=== PATIENT | female | born 1945 | race Caucasian/White ===

== ENCOUNTER 2024-09-19 13:45 | Inpatient (IN) | payer MEDICARE, SELFPAY ==
[2024-09-19] VITALS (39 sets, daily range): BP systolic 108–170; BP diastolic 59–125; PULSE 64–85; RESP 2–30; TEMP 36–36.6; O2SAT 83–98
--- NOTE | 2024-09-19 14:00 | DI.RAD_ITS ---
Exam(s) XR PORTABLE CHEST AP EXAM: XR PORTABLE CHEST AP CLINICAL HISTORY: SOB, eval PNA TECHNIQUE: 2D digital imaging was performed. COMPARISON: No exams were available for comparison FINDINGS: Exam is limited due to under penetration. LUNGS: Infiltrate seen in the inferior right upper lobe is well as right lower lobe. Mild blunting a t the right costophrenic angle could be chronic or represent a small effusion. The left lung base is partially obscured. No pneumothorax HEART: Mildly enlarged. AORTA: Normal diameter. BONES: Unremarkable for age. Sternal wires. Prominent costal cartilage Soft tissues: Unremarkable. IMPRESSION: Right upper and lower lobe pneumonia. DATA REPOSITORY: RADIATION DOSE DELIVERED:
--- NOTE | 2024-09-19 14:00 | RT.EKG_ITS ---
APPROVED REPORT Exam: Resting ECG Reason for Exam: SOB Patient Location: E HR:74 bpm ECG Measurements Heart Rate 74 AXIS NE [id number] P [id number] QRSd 111 QRS -82 QT 450 T 72 QTc 499 Conclusion Accelerated junctional rhythm vs sinus rhythm with flattened p waves Prolongued QTc to 499ms No STEMI No priors available for comparison
--- NOTE | 2024-09-19 14:04 | ED.GENADUL_ITS ---
Discharge Plan Discharge Details Chief Complaint: SOB Primary Care Provider: Anna,Local ED Provider: Tangela Fortune Home Meds and New Rx's Prescriptions: No Action levothyroxine 150 mcg tablet 150 mcg PO DAILY Patient Comments: TAKE ONE TABLET BY MOUTH ONCE DAILY. gabapentin 300 mg capsule 300 mg PO QHS Patient Comments: TAKE 1 CAPSULE BY MOUTH EVERY DAY AT HOUR OF SLEEP budesonide 0.5 mg/2 mL suspension for nebulization 0.5 mg inhalation BID Patient Comments: Inhale 1 ampule 2 TIMES A DAY via nebulizer montelukast 10 mg tablet 10 mg PO DAILY Patient Comments: TAKE ONE TABLET BY MOUTH ONCE DAILY. furosemide 20 mg tablet 20 mg PO DAILY Patient Comments: TAKE 1 TABLET BY MOUTH EVERY DAY oxybutynin chloride 5 mg tablet 5 mg PO DAILY Patient Comments: TAKE 1 TABLET BY MOUTH DAILY NEEDED FOR URINE CONTROL escitalopram oxalate 20 mg tablet 20 mg PO DAILY Patient Comments: TAKE 1 TABLET BY MOUTH EVERY DAY Fasenra 30 mg/mL syringe 30 mg SUBCUT ONCE Patient Comments: 1 injection every 56 days per pt Trelegy Ellipta 200-62.5-25 mcg blister with device 1 inh INHALATION DAILY Patient Comments: INHALE 1 PUFF BY MOUTH EVERY DAY bupropion HCl [Wellbutrin XL] 300 mg tablet extended release 24 hr 300 mg PO DAILY HPI General Mode of arrival: EMS . Date/Time Provider Initiated Documentation: 09/19/24 13:50 . Limitations to Documentation: no limitations . Information obtained by: patient, family and old records reviewed . HPI Narrative: HPI: This is an 78-year-old female patient with a past medical history significant for COPD, and admission for pneumonia in June 2024, on 4 L of oxy gen at baseline who is presenting for evaluation of shortness of breath. The patient reports that she was feeling well after discharge from the [facility] [place], and 3 days ago started to have worsening of her shortness of breath. She has a productive cough at baseline but feels like it is more bothersome now. She has not noted any fevers or chills. She states that she has been using her nebulizer, but as she is traveling and visiting family it is more difficult to access because it is not in her usual spot. She reports that she has not been on oral steroids, does take Lasix at baseline but denies a history of heart failure. Patient was transported by EMS, received a nebulizer treatment en route. On arrival the patient was taken off of her oxygen to change into a gown, and was n oted to immediately desaturate to the mid 70s. She did recover slowly with 4 L by simple mask. Had 2-3 word dyspnea during this event. Exam: Gen: Awake and alert, in no apparent distress HEENT: Non-icteric sclera Neck: Supple Lungs: Mild respiratory distress with tachypnea, junky sounding cough and scattered crackles throughout her lung selby CV: Appears well perfused, heart with regular rate and rhythm, strong distal pulses Abdomen: Non-distended, soft MSK: Moves 4 extremities without apparent limitation in ROM. No unilateral calf swelling, no peripheral edema Skin: Visualized skin without rashes, cyanosis. Neuro: Normal Gait, no obvious focal deficits or facial asymmetry. Speaks in full, clear sentences while on oxygen. Psych: Appropriate for situation. MDM: This is a 88-year-old female patient presenting for evaluation of shortness of breath and hypoxia for the last 3 days. My differential includes but is not limited to COPD exacerbation, pneumonia, bronchitis, certainly consider pulmonary edema and pleural effusion. The patient is not tachycardic and the productive cough is less consistent with a diagnosis of pulmonary embolism. No chest pain to suggest ACS, certainly considered metabolic electrolyte derangements, anemia, dehydration. At this time, the patient is saturating appropriately on her baseline 4 L of oxygen, but we will provide her with a duo nebulizer treatment and a dose of intravenous steroids, 125 mg Solu-Medrol. Obtain an EKG, chest x-ray, and laboratory studies to include CBC, CMP, magnesium, troponin, and BNP. ED Course: I reviewed the patient's laboratory studies, which reveal a leukocytosis to 25 with left shift, no anemia or thrombocytopenia. Chemistry panel with mild hyponatremia, hypomagnesemia, and hypochloremia but no other si gnificant electrolyte derangements, nor evidence of kidney dysfunction. No evidence of liver dysfunction, initial troponin low, BNP elevated to 5431. Patient reports that she forgot her Lasix and has not been taking it while visiting family. Independently interpreted the patient's chest x-ray, which shows a right upper and lower lobar pneumonia, which the patient was provided with an intravenous dose of ceftriaxone and azithromycin. Her oxygen did need to be increased to 6 L/min due to persistent mild hypoxia from 89 to 91%. I also provided her with a small dose of Lasix, 20 mg IV, though her physical examination is not concerning for significant fluid overload. Given her worsening oxygen requirement, I did recommend admission to this hospital and the hospitalist has graciously accepted this patient for admission to their service for ongoing treatment. While under my care the patient remained hemodynamically appropriate was transferred to the hospitalist service without incident. Tangela Fortune MD Related Data Home Medications ?Medication ?Instructions ?Recorded ?Confirmed benralizumab 30 mg/mL subcutaneous 30 mg subcut ONCE 09/19/24 09/19/24 syringe (Fasenra) budesonide 0.5 mg/2 mL suspension 0.5 mg inhalation BID 09/19/24 09/19/24 for nebulization bupropion HCl 300 mg 24 hr tablet, 300 mg PO DAILY 09/19/24 09/19/24 extended release (Wellbutrin XL) escitalopram oxalate 20 mg tablet 20 mg PO DAILY 09/19/24 09/19/24 fluticasone fur. 200 mcg-umeclid 1 inh inhalation DAILY 09/19/24 09/19/24 62.5 mcg-vilant 25 mcg inhalat.powder (Trelegy Ellipta) furosemide 20 mg tablet 20 mg PO DAILY 09/19/24 09/19/24 gabapentin 300 mg capsule 300 mg PO QHS 09/19/24 09/19/24 levothyroxine 150 mcg tablet 150 mcg PO DAILY 09/19/24 09/19/24 montelukast 10 mg tablet 10 mg PO DAILY 09/19/24 09/19/24 oxybutynin chloride 5 mg tablet 5 mg PO DAILY 09/19/24 09/19/24 Allergies Allergy/AdvReac Type Severity Reaction Status Date / Time levofloxacin (From Levaquin) Allergy Intermediate Other (See Verified 09/19/24 13:58 Comment) General Stated Complaint: SOB STORMY: 3 Course Vital Signs Vital signs: Vital Signs Pulse 84 09/19/24 13:44 Respiratory Rate 20 09/19/24 13:44 Blood Pressure 161/125 H 09/19/24 13:44 Pulse Oximetry 84 L 09/19/24 13:44 Temperature 36.6 C 09/19/24 13:58 Temperature Source Temporal Artery Scan 09/19/24 13:58 Pulse 79 09/19/24 14:01 Pulse 79 09/19/24 14:01 Respiratory Rate 23 09/19/24 14:01 Respiratory Effort Short of Breath, Labored, Accessory Muscle Use, Nasal Flaring, Pursed Lip, Incrsd Work of Breathing 09/19/24 13:58 Respiratory Depth Retractive 09/19/24 13:58 Respiratory Pattern Tachypnea 09/19/24 13:58 Blood Pressure 158/81 H 09/19/24 14:01 Blood Pressure Mean 105 09/19/24 14:01 Blood Pressure Position Sitting 09/19/24 13:58 Pulse Oximetry 92 09/19/24 14:01 Oxygen Delivery Method OxyMask 09/19/24 13:58 Oxygen Flow Rate 5 09/19/24 13:58 Pain Level 5 09/19/24 13:58 Comment SOB 09/19/24 13:58 Medical Decision Making Quality:SDOH Health Related Social Needs: No Data to Display PFSH All Active Problems (Updated 09/19/24 @ 15:53 by Mick Henson) DVT prophylaxis (Acute) CAD (coronary artery disease) (Chronic) COPD with exacerbation (Acute) Community acquired pneumonia (Acute) Medical History (Updated 09/19/24 @ 15:53 by Mick Henson) Hypothyroid Depression Social History Smoking/Tobacco Use Status: Former Tobacco Use Smoking risk assessment performed?: Yes Alcohol Intake: current Alcohol Intake frequency: holidays/special occasions only Drug use: Never Substance use type: does not use Housing: house Do you feel safe at home: Yes Do you feel safe in your relationship?: Yes Additional Social history: grand daughter helps care for pt, arrived soon after, very concerned.
[2024-09-19 14:31] LABS: Absolute Eosinophil Count 9.14 10^3/uL (0.0-0.7); Eosinophils % 35.9 %; HGB 12.2 g/dL (11.2-15.7); MCH 29.5 pg (27.0-33.0); MCHC 32.1 % (32.0-36.0); MCV 92 fL (80-95); Platelet Count 232 10^3/uL (130-400); RBC 4.14 10^6/uL (3.93-5.22); RDW 14.5 % (11.7-14.6); RDW-SD 48.9 fL
[2024-09-19] MEDS: methylPREDNISolone SUCC 125 MG VIAL IVP (14:32)
[2024-09-19] MEDS: Albuterol/Ipratropium 3 ML UPD VIAL UPD ×3 (14:33→20:05)
[2024-09-19 14:35] LABS: WBC 25.46 10^3/uL (4.4-10.8)
[2024-09-19] MEDS: cefTRIAXone 1 GM/50 ML BAG IVPB (14:39)
[2024-09-19] MEDS: AZITHROMYCIN 500 MG in Normal Saline 250 ML 250 MG IVPB (14:39)
[2024-09-19 14:53] LABS: ALT 12 U/L (14-59); AST 16 U/L (15-37); Albumin 2.7 g/dL (3.4-5.0); Alkaline Phosphatase 83 U/L (46-116); BUN 7 mg/dL (7-18); Bilirubin, Total 1.12 mg/dL (0.2-1.0); CREATININE 0.8 mg/dL (0.55-1.02); Calcium 8.7 mg/dL (8.5-10.1); Chloride 96 mmol/L (98-107); Estimated GFR 74.44 (mL/min/1.73m2); Glucose 184 mg/dL (74-106); Magnesium 1.6 mg/dL (1.8-2.4); NT-proBNP 5431 pg/mL (<300); Potassium 3.7 mmol/L (3.5-5.1); Sodium 132 mmol/L (136-145); Total Protein 7.7 g/dL (6.4-8.2); Troponin I 19 ng/L (<or=51)
[2024-09-19 15:15] LABS: Absolute Neutrophil Count 22.66 10^3/uL (1.2-6.7); Bands % 1 %
[2024-09-19 15:16] LABS: Absolute Lymphocyte Count 1.02 10^3/uL (1.2-3.4); Absolute Monocyte Count 1.53 10^3/uL (0.1-0.8); Diff Comment Manual Differential; Metamyelocytes % 1; RBC Morphology Normal
--- NOTE | 2024-09-19 15:51 | HPE_ITS ---
Date of service: 09/19/24 Time of Service: 15:51 Assessment and Plan Assessment and plan (1) Acute on chronic hypoxic respiratory failure: Status: Acute Assessment and plan: In setting of asthma/COPD overlap syndrome, with home oxygen requirement. Principle cause is pneumonia with COPD/asthma exacerbation. possible contribution of CHF that may have complicated myxoma resection, get echo when available. Stable on NC at this point, consider NIV if tiring. VBG reassuring, not a CO2 retainer. She confirms DNI (2) Community acquired pneumonia: Status: Acute Assessment and plan: Started on ceftriaxone and azithromycin. I changed azithro to doxycline given concern for cardiac abnormalities, less arrythmia risk No known MRSA or pseudomonas history or risk factors. Flu/COVID/RSV pending (3) COPD with exacerbation: Status: Acute Assessment and plan: Started on solumedrol along with nebs, antibiotics. continue home inhalers other than steroid nebs while on oral steroids. She is also on meds for allergic asthma. (4) Depression: Assessment and plan: Continue home medications. (5) Hypothyroid: Assessment and plan: Get TSH, continue home levothyroxine (6) Hyponatremia: Status: Acute Assessment and plan: Mild, a/w pneumonia, follow (7) Hypomagnesemia: Status: Acute Assessment and plan: supplement, which might also help bronchodilation. Follow. (8) DVT prophylaxis: Status: Acute Assessment and plan: enoxaparin History of Present Illness History of Present Illness Chief Complaint: short of breath Narrative: 78 female with chronic respiroatory failure a/w COPD on 4-6 liters home oxygen who is presenting with 2-3 days of progressive cough and shortness of breath. She is visiting family from [place], [place] for the holidays. She started coughing 3 days ago. She developed runny nose and fever. The fever went away the next day, she felt better, but the cough continued and shortness of breath got worse today. She is using her nebulizer with some help, using up to 10 liters of oxygen up from her usual 4 liters at rest and 6-7 liters with activity along with her regular inhalers. She has not been seen for this and is not taking steroids or antibiotics. Her cough is productive of this sputum, no blood. She has not had a fever since the first day. She has been around a lot of family but others aren't sick. She typically takes 20mg daily of furosemide but left this at home so has been without it for 5 days. Of note, she was admitted in [place] in June 2024 for about a week for a pnuemonia. She states she has been on oxygen since her open heart surgery in 2019. The surgery was for a myxoma, and she states she was told she had heart failure but she never has had a heart attack, CABG, or stenting. 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) H/O section S/P thyroidectomy including substernal nodules Family History (Updated 09/19/24 @ 16:33 by Mick Henson) Father , age 60 Cancer pancreatic Social History (Updated 09/19/24 @ 16:44 by Mick Henson) Smoking/Tobacco Use Status: Former Tobacco Use tobacco type: cigarettes Quit Date: 09/23/07 Pack-years: 75 Smoking risk assessment performed?: Yes Alcohol Intake: current Alcohol Intake frequency: holidays/special occasions only Drug use: Never Substance use type: does not use Housing: house Do you feel safe at home: Yes Do you feel safe in your relationship?: Yes Additional Social history: Lives in [place], apartment alone. 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 Meds Allergies and Home Medications Allergies Allergy/AdvReac Type Severity Reaction Status Date / Time levofloxacin (From Levaquin) Allergy Intermediate Other (See Verified 09/19/24 13:58 Comment) Home Medications ?Medication ?Instructions ?Recorded ?Confirmed ?Type benralizumab 30 mg/mL subcutaneous 30 mg subcut ONCE 09/19/24 09/19/24 History syringe (Fasenra) budesonide 0.5 mg/2 mL suspension 0.5 mg inhalation BID 09/19/24 09/19/24 History for nebulization bupropion HCl 300 mg 24 hr tablet, 300 mg PO DAILY 09/19/24 09/19/24 History extended release (Wellbutrin XL) escitalopram oxalate 20 mg tablet 20 mg PO DAILY 09/19/24 09/19/24 History fluticasone fur. 200 mcg-umeclid 1 inh inhalation DAILY 09/19/24 09/19/24 History 62.5 mcg-vilant 25 mcg inhalat.powder (Trelegy Ellipta) furosemide 20 mg tablet 20 mg PO DAILY 09/19/24 09/19/24 History gabapentin 300 mg capsule 300 mg PO QHS 09/19/24 09/19/24 History levothyroxine 150 mcg tablet 150 mcg PO DAILY 09/19/24 09/19/24 History montelukast 10 mg tablet 10 mg PO DAILY 09/19/24 09/19/24 History oxybutynin chloride 5 mg tablet 5 mg PO DAILY 09/19/24 09/19/24 History Exam Narrative Exam Narrative: GEN: Alert and oriented x 4, sitting up in bed, pleasant and sassy but cooperative, gives linear history. No acute distress at rest. HEENT: Head atraumatic. Conjunctiva clear, no icterus. PEERL, EOMI. no rhinorrhea. MMM, OP benign. Neck is supple with no masses or lymphadenopathy, trachea midline LUNGS: Poor air movement diffusely. Rales on right side. Mild diffuse expiratory wheeze. Mild increased respiratory effort CV: RRR with no murmurs, gallops, or rubs. No elevation JVP ABD: active bowel sounds, soft,nondistended. No masses. Mild RUQ tenderness but no HSM. EXT: no cyanosis, clubbing, or edema MSK: No joint redness or swelling NEURO: CN 2-12 grossly intact. Normal movement of 4 extremities. Normal speech and coordination. No tremor SKIN: No rashes or open wounds. PSYCH: normal mood and affect. sharp mentally Results Labs 09/19/24 14:21 09/19/24 14:21 Labs: Laboratory Results - last 24 hr 09/19/24 09/19/24 14:21 17:03 WBC 25.46 H* RBC 4.14 Hgb 12.2 Hct 38.0 MCV 92 MCH 29.5 MCHC 32.1 RDW 14.5 Plt Count 232 MPV 9.0 Immature Gran % 0.0 Neutrophils % 88.0 Band Neutrophils % 1 Lymphocytes % 4.0 Monocytes % 6.0 Eosinophils % 35.9 Basophils % 0.0 Metamyelocytes % 1 Nucleated RBC % 0.0 Absolute Neutrophils 22.66 H Absolute Lymphocytes 1.02 L Absolute Monocytes 1.53 H Absolute Eosinophils 9.14 H Absolute Basophils 0.00 RBC Morphology Normal VBG pH Cancelled VBG pCO2 Cancelled VBG pO2 Cancelled VBG HCO3 Cancelled VBG Total CO2 Cancelled VBG O2 Saturation Cancelled VBG Base Excess Cancelled Sodium 132 L Potassium 3.7 Chloride 96 L Carbon Dioxide 29.0 Anion Gap 7.0 BUN 7 Creatinine 0.8 Est GFR (CKD-EPI 2020) 74.44 Glucose 184 H Calcium 8.7 Magnesium 1.6 L Total Bilirubin 1.12 H AST 16 ALT 12 L Alkaline Phosphatase 83 Troponin I 19 NT-Pro-B Natriuret Pep 5431 H Total Protein 7.7 Albumin 2.7 L Last Vital Signs Temp 36.6 C 09/19/24 13:58 Pulse 75 09/19/24 15:16 Resp 30 H 09/19/24 15:20 BP 131/105 H 09/19/24 15:16 Pulse Ox 93 09/19/24 15:20 Time Spent Time spent with Patient: >75 minutes Time was spent: preparing to see the patient(eg.review tests), obtaining and/or reviewing separately otained hiistory, ordering medications,tests, procedures, referring, communicating with other health child care assistant, indepentently interpreting results, counseling the patient and care coordination
[2024-09-19 16:02] LABS: Troponin I 16 ng/L (<or=51)
[2024-09-19 16:04] LABS: BE (Venous) 4 mmol/L (-2-3); HCO3 (Venous) 29 mmol/L (23-28); O2 Sat (Venous) 90 %; TCO2 (Venous) 26 mmol/L (24-29); pCO2 (Venous) 45 mmHg (41-51); pH (Venous) 7.41 (7.31-7.41); pO2 (Venous) 56 mmHg
--- NOTE | 2024-09-19 16:12 | W.PC.ACHO ---
Registration Status: Primary Language: Preferred Language: ED Information & Data Chief Complaint SOB 09/19/24 14:11 Triage Note Pt arrives via EMS d/t SOB x 09/19/24 13:44 3 days; chronic cough per EMS. Pt is on 4 L of O2 at home normally - hx of COPD 1 neb trx given by EMS Medical / Surgical History (Last Updated 09/19/24 @ 15:53 by Mick Henson) Hypothyroid Depression Most Recent Vital Signs Temperature 36.6 C 09/19/24 13:58 Temperature Source Temporal Artery Scan 09/19/24 13:58 Pulse 74 09/19/24 16:01 Pulse 75 09/19/24 16:01 Respiratory Rate 22 09/19/24 16:01 Respiratory Effort Short of Breath, Labored, Accessory Muscle Use, Nasal Flaring, Pursed Lip, Incrsd Work of Breathing 09/19/24 13:58 Respiratory Depth Retractive 09/19/24 13:58 Respiratory Pattern Tachypnea 09/19/24 13:58 Blood Pressure 122/65 09/19/24 16:01 Blood Pressure Mean 76 09/19/24 16:01 Blood Pressure Position Sitting 09/19/24 13:58 Pulse Oximetry 94 09/19/24 16:01 Oxygen Delivery Method OxyMask 09/19/24 14:33 Oxygen Flow Rate 5 09/19/24 14:33 Pain Level 5 09/19/24 13:58 Comment SOB 09/19/24 13:58 Comment 5L 09/19/24 15:20 Allergies levofloxacin (From Levaquin) Allergy (Intermediate, Verified 09/19/24 13:58) Other (See Comment) Hives Precautions Isolation PUI 09/19/24 13:58 IV IV Catheter Type [Antecubital] Peripheral IV IV Catheter Gauge [Antecubital 18 ] Diet Orders Category Date Time Status Heart Healthy Eating [DIET] Nutrition 09/19/24 Dinner Active Diagnostics 09/19/24 09/19/24 09/19/24 Range/Units 17:03 16:01 15:50 WBC (4.4-10.8) 10^3/uL RBC (3.93-5.22) 10^6/uL Hgb (11.2-15.7) g/dL Hct (36.0-46.0) % MCV (80-95) fL MCH (27.0-33.0) pg MCHC (32.0-36.0) % RDW (11.7-14.6) % Plt Count (130-400) 10^3/uL MPV (8.0-11.0) fL Immature Gran % % Neutrophils % % Band Neutrophils % % Lymphocytes % % Monocytes % % Eosinophils % % Basophils % % Metamyelocytes % Nucleated RBC % (0.0-0.3) % Absolute Neutrophils (1.2-6.7) 10^3/uL Absolute Lymphocytes (1.2-3.4) 10^3/uL Absolute Monocytes (0.1-0.8) 10^3/uL Absolute Eosinophils (0.0-0.7) 10^3/uL Absolute Basophils (0.0-0.2) 10^3/uL RBC Morphology VBG pH Cancelled 7.41 (7.31-7.41) VBG pCO2 Cancelled 45 (41-51) mmHg VBG pO2 Cancelled 56 mmHg VBG HCO3 Cancelled 29 H (23-28) mmol/L VBG Total CO2 Cancelled 26 (24-29) mmol/L VBG O2 Saturation Cancelled 90 % VBG Base Excess Cancelled 4 H (-2-3) mmol/L Sodium (136-145) mmol/L Potassium (3.5-5.1) mmol/L Chloride (98-107) mmol/L Carbon Dioxide (21.0-32.0) mmol/L Anion Gap (3-11) mmol/L BUN (7-18) mg/dL Creatinine (0.55-1.02) mg/dL Est GFR (CKD-EPI 2020) (mL/min/1.73m2) Glucose (74-106) mg/dL Calcium (8.5-10.1) mg/dL Magnesium (1.8-2.4) mg/dL Total Bilirubin (0.2-1.0) mg/dL AST (15-37) U/L ALT (14-59) U/L Alkaline Phosphatase (46-116) U/L Troponin I Pending (<or=51) ng/L NT-Pro-B Natriuret Pep (<300) pg/mL Total Protein (6.4-8.2) g/dL Albumin (3.4-5.0) g/dL TSH Pending COVID-19 Source Pending SARS-CoV-2 (PCR) Pending Influenza Type A (PCR) Pending Influenza Type B (PCR) Pending RSV (PCR) Pending 09/19/24 09/19/24 Range/Units 15:21 14:21 WBC 25.46 H* (4.4-10.8) 10^3/uL RBC 4.14 (3.93-5.22) 10^6/uL Hgb 12.2 (11.2-15.7) g/dL Hct 38.0 (36.0-46.0) % MCV 92 (80-95) fL MCH 29.5 (27.0-33.0) pg MCHC 32.1 (32.0-36.0) % RDW 14.5 (11.7-14.6) % Plt Count 232 (130-400) 10^3/uL MPV 9.0 (8.0-11.0) fL Immature Gran % 0.0 % Neutrophils % 88.0 % Band Neutrophils % 1 % Lymphocytes % 4.0 % Monocytes % 6.0 % Eosinophils % 35.9 % Basophils % 0.0 % Metamyelocytes % 1 Nucleated RBC % 0.0 (0.0-0.3) % Absolute Neutrophils 22.66 H (1.2-6.7) 10^3/uL Absolute Lymphocytes 1.02 L (1.2-3.4) 10^3/uL Absolute Monocytes 1.53 H (0.1-0.8) 10^3/uL Absolute Eosinophils 9.14 H (0.0-0.7) 10^3/uL Absolute Basophils 0.00 (0.0-0.2) 10^3/uL RBC Morphology Normal VBG pH (7.31-7.41) VBG pCO2 (41-51) mmHg VBG pO2 mmHg VBG HCO3 (23-28) mmol/L VBG Total CO2 (24-29) mmol/L VBG O2 Saturation % VBG Base Excess (-2-3) mmol/L Sodium 132 L (136-145) mmol/L Potassium 3.7 (3.5-5.1) mmol/L Chloride 96 L (98-107) mmol/L Carbon Dioxide 29.0 (21.0-32.0) mmol/L Anion Gap 7.0 (3-11) mmol/L BUN 7 (7-18) mg/dL Creatinine 0.8 (0.55-1.02) mg/dL Est GFR (CKD-EPI 2020) 74.44 (mL/min/1.73m2) Glucose 184 H (74-106) mg/dL Calcium 8.7 (8.5-10.1) mg/dL Magnesium 1.6 L (1.8-2.4) mg/dL Total Bilirubin 1.12 H (0.2-1.0) mg/dL AST 16 (15-37) U/L ALT 12 L (14-59) U/L Alkaline Phosphatase 83 (46-116) U/L Troponin I 16 19 (<or=51) ng/L NT-Pro-B Natriuret Pep 5431 H (<300) pg/mL Total Protein 7.7 (6.4-8.2) g/dL Albumin 2.7 L (3.4-5.0) g/dL TSH COVID-19 Source SARS-CoV-2 (PCR) Influenza Type A (PCR) Influenza Type B (PCR) RSV (PCR) 09/19/24 15:50 Blood Culture - Pending Blood 09/19/24 15:35 Blood Culture - Pending Blood Intake and Output - 24 Hour Total 09/19/24 13:43 thru 09/19/24 16:07 Intake Total 300 Balance 300 Weight 58.967 kg Intake: IV 300 Falls Risk Assessment History of Falls Previous History 09/19/24 13:58 Contributing Factors Unstable,Impairments, 09/19/24 13:58 Incontinence,Medications Ambulatory Aids Uses ambulatory device + 09/19/24 13:58 Tubes/Lines W/no contributing factors 09/19/24 13:58 Gait Evaluation W/any additional score 09/19/24 13:58 Cognition No cognitive impairment 09/19/24 13:58 Fall Total Score 87 09/19/24 13:58 Level of Risk Maximum Risk 09/19/24 13:58 Problems (Last Updated 09/19/24 @ 15:53 by Mick Henson) DVT prophylaxis (Acute) CAD (coronary artery disease) (Chronic) COPD with exacerbation (Acute) Community acquired pneumonia (Acute) v v v v v v v v v Sending and/or Receiving Nurses: Please use comment section below to note any information pertinent to the patient hand-off not included above. Information / Comments: Report received from: Madiha 09/19/2024 @ [id number]. Lasix [facility]
[2024-09-19] MEDS: Furosemide 20 MG/2 ML VIAL IVP (16:14)
[2024-09-19 16:30] LABS: TSH (W/Ref FT4) 5.17 uIU/mL (0.36-3.74)
[2024-09-19 16:47] LABS: FREE T4 0.77 ng/dL (0.76-1.46)
[2024-09-19 17:45] LABS: COVID-19 PCR Negative (Negative); Influenza A PCR Negative (Negative); Influenza B PCR Negative (Negative); RSV PCR Negative (Negative)
[2024-09-19] MEDS: MAGNESIUM SULFATE 2 GM/50 ML BAG IV_INF (17:45)
[2024-09-19] MEDS: Normal Saline Flush 10 ML SYR IVP ×3 (17:45→23:18)
[2024-09-19 17:49] LABS: Source Nasopharynx
[2024-09-19 18:50] LABS: Troponin I 17 ng/L (<or=51)
[2024-09-19] MEDS: DOXYCYCLINE 100 MG in Normal Saline 100 ML IVPB (20:29)
[2024-09-19] MEDS: Enoxaparin 40 MG/0.4 ML SYR SC (20:30)
[2024-09-19] MEDS: Montelukast 10 MG TAB PO (20:30)
[2024-09-19] MEDS: Gabapentin 300 MG CAP PO (20:30)
[2024-09-19] MEDS: methylPREDNISolone SUCC 125 MG VIAL 60 MG IVP (23:18)
[2024-09-19] MEDS: guaiFENesin 600 MG TABCR PO (23:19)
[2024-09-19] MEDS: Benzonatate 200 MG CAP PO (23:19)
[2024-09-20] VITALS (13 sets, daily range): BP systolic 119–149; BP diastolic 41–70; PULSE 61–75; RESP 3–24; TEMP 36–37; O2SAT 89–98
[2024-09-20] MEDS: Benzocaine/Menthol LOZG 15/BOX 1 EACH SUC ×4 (04:00→22:00)
[2024-09-20] MEDS: Levothyroxine 50 MCG TAB 150 MCG PO (06:27)
[2024-09-20 06:37] LABS: Abs Immature Grans 0.23 10^3/uL (0.0-0.06); Absolute Basophil Count 0.04 10^3/uL (0.0-0.2); Absolute Lymphocyte Count 0.86 10^3/uL (1.2-3.4); Basophils % 0.2 %; Eosinophils % 0.2 %; HCT 34.8 % (36.0-46.0); HGB 11.9 g/dL (11.2-15.7); Immature Grans % 1.1 %; Lymphocytes % 4.3 %; MCH 29.8 pg (27.0-33.0); MCHC 34.2 % (32.0-36.0); MCV 87 fL (80-95); MPV 9.4 fL (8.0-11.0); Monocytes % 4.9 %; Neutrophils % 89.3 %; Platelet Count 223 10^3/uL (130-400); RBC 3.99 10^6/uL (3.93-5.22); RDW 14.3 % (11.7-14.6); RDW-SD 45.7 fL; WBC 20.02 10^3/uL (4.4-10.8)
[2024-09-20 06:43] LABS: Absolute Eosinophil Count 0.04 10^3/uL (0.0-0.7); Absolute Monocyte Count 0.98 10^3/uL (0.1-0.8); Absolute Neutrophil Count 17.88 10^3/uL (1.2-6.7)
[2024-09-20 06:54] LABS: Anion Gap 4.2 mmol/L (3-11); BUN 9 mg/dL (7-18); CO2 31.8 mmol/L (21.0-32.0); CREATININE 0.7 mg/dL (0.55-1.02); Calcium 8.9 mg/dL (8.5-10.1); Chloride 98 mmol/L (98-107); Estimated GFR 87.37 (mL/min/1.73m2); Glucose 157 mg/dL (74-106); Magnesium 2.2 mg/dL (1.8-2.4); Potassium 3.9 mmol/L (3.5-5.1); Sodium 134 mmol/L (136-145)
--- NOTE | 2024-09-20 08:41 | INITIAL_ITS ---
Date of service: 09/20/24 Time of Service: 08:41 Care Management Initial Assmt Initial Assessment Reason for Hospitalization: Pneumonia Functional Status/Living Situation Patient Presentation: Genna was sitting up in bed when CM met with her. She was polite and agreeable to conversation, but not overly talkative. Genna lives alone in a single family home in [place], [place] . Her granddaughter has been living with her for the past 4 years but recently moved to [place] to be near her boyfriend. Genna was in [place] for the holiday visiting with family when she got sick. She was admitted with pneumonia and is oxygen dependent at baseline. Genna's daughter Nano came to visit this afternoon and asked to meet with CM. She expressed concerns about her mother's ability top care for herself at home right now and was seeking information about services. Genna is not willing to consider short term rehab but she is open to Pulmonary Rehab and home health services. CM has requested a PT evaluation and will contact Pulmonology tomorrow to learn more about their Pulmonary Rehab program. A follow up meeting is scheduled for tomorrow at 2 pm with Genna and Nano. Town of Residence: [place], [place] Significant Other/Family: Out of area (daughter in [place] and son in [place]) Employment Status: Retired Instrumental Activities of Daily Living (ADLs): Independent Medications Medication Management: Issues/Barriers with Instructions/Directions (traveling and left lasix at home) Physical Functioning/Mobility Assistive Device: home O2 has a cleaning lady every 2 weeks (private pay) Advance Directives Advance Directives: Do you have an Advance Directive: Y 09/19/24 13:52 AD On File at [facility]: N 09/19/24 13:52 Date Asked 09/19/24 09/19/24 13:52 AD Date Reviewed COLST On File at [facility] No 09/19/24 15:16 COLST Date Scanned Code Status Resuscitation Status DNI Portal Pt does not currently have a portal and education provided: No Portal Education: Other (out of state) Insurance Coverage/Financial Issues Insurance: [employer] Medicare Replacement Care Team Visit Care Team Role Provider Type Local No Primary Care Provider [facility] STAFF PHYSICIAN Tangela Fortune MD Emergency Provider [facility] STAFF PHYSICIAN Mick Henson Admit Provider MD [facility] STAFF PHYSICIAN Attending Provider Discharge Potential Discharge Needs: PT Evaluation and Other (possible referral for Pulmonary Rehab) Anticipated Barriers to Discharge: Medical Status Patient/Family Education Needs: Review discharge instructions, discuss Ask Me Three Transportation: Private vehicle Plan: Anticipate Genna will be discharged home to her daughter's home when medically cleared. She may benefit from home health PT and/or Pulmonary Rehab. She will follow up with her PCP and plan of care and transport with family. CM will follow and will continue to assess for discharge needs. 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) H/O section S/P thyroidectomy including substernal nodules Family History (Updated 09/19/24 @ 16:33 by Mick Henson) Father , age 60 Cancer pancreatic Social History (Updated 09/19/24 @ 16:44 by Mick Henson) Smoking/Tobacco Use Status: Former Tobacco Use tobacco type: cigarettes Quit Date: 09/23/07 Pack-years: 75 Smoking risk assessment performed?: Yes Alcohol Intake: current Alcohol Intake frequency: holidays/special occasions only Drug use: Never Substance use type: does not use Housing: house Do you feel safe at home: Yes Do you feel safe in your relationship?: Yes Additional Social history: Lives in [place], apartment alone. 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 SDOH(Care Management) Screening Will the Patient Participate in the Screening?: Yes Do you worry about having a steady place to live?: no Problems where you live: smoke detectors missing or not working and Carbon monoxide detectors missing or not working In the past 12 months, have you had to go without electric, gas, oil or water in your home?: no Have you or anyone in your house had to go without enough food to eat?: no Has lack of transportation kept you from medical appointments or from doing things needed for daily living?: no Has anyone in your support network made you feel unsafe for any reason?: no Health Related Social Needs Health related social needs: inadequate housing(Z59.1)
[2024-09-20] MEDS: DOXYCYCLINE 100 MG in Normal Saline 100 ML IVPB ×2 (09:12→20:52)
[2024-09-20] MEDS: Normal Saline Flush 10 ML SYR IVP ×4 (09:13→20:51)
[2024-09-20] MEDS: methylPREDNISolone SUCC 125 MG VIAL 60 MG IVP (09:14)
[2024-09-20] MEDS: Escitalopram 20 MG TAB PO (09:17)
[2024-09-20] MEDS: Furosemide 20 MG TAB PO (09:17)
[2024-09-20] MEDS: Oxybutynin 5 MG TAB PO (09:17)
[2024-09-20] MEDS: buPROPion-XL 150 MG TABCR 300 MG PO (09:17)
[2024-09-20] MEDS: guaiFENesin 600 MG TABCR PO ×2 (09:17→20:50)
[2024-09-20] MEDS: Benzonatate 200 MG CAP PO ×3 (09:17→20:50)
[2024-09-20] MEDS: Albuterol/Ipratropium 3 ML UPD VIAL UPD ×4 (09:30→21:04)
[2024-09-20] MEDS: predniSONE 20 MG TAB 40 MG PO (13:14)
--- NOTE | 2024-09-20 13:19 | W.PM.PROGNOT ---
Date of Service Date of service: 09/20/24 Time of Service: 09:10 Assessment and Plan Assessment and plan (1) Acute on chronic hypoxic respiratory failure: Status: Acute Assessment and plan: In setting of asthma/COPD overlap syndrome, with home oxygen requirement. Principle cause is pneumonia with COPD/asthma exacerbation. 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 Stable on 3 liters NC at rest, around her home baseline, but still poor exercise tolerance. Continue to monitor. (2) Community acquired pneumonia: Status: Acute Assessment and plan: Started on ceftriaxone and azithromycin, transitioned to doxycycline. No known MRSA or pseudomonas history or risk factors, improving with this treatment. (3) COPD with exacerbation: Status: Acute Assessment and plan: Started on solumedrol along with nebs, antibiotics. continue home inhalers and budesonide nebs. Transition to oral prednisone. (4) Hyponatremia: Status: Acute Assessment and plan: Mild, a/w pneumonia, improving. (5) Hypomagnesemia: Status: Acute Assessment and plan: normalized after IV supplement (6) DVT prophylaxis: Status: Acute Assessment and plan: enoxaparin Subjective Subjective Patient reports: no new complaints, feels better and tolerating a regular diet; denies diarrhea, nausea, vomiting or fever Interval history since last seen: Down to needing 3 liters, though hasn't been very active. Feeling better, but not back to her baseline. Gets tired easily. Exam Narrative Exam Narrative: GEN: Alert and oriented x 4, sitting up in bed. No acute distress at rest. LUNGS: Improved air movement diffusely. slight rales on right side. Mild diffuse wheeze on inspiration. CV: RRR with no murmurs, gallops, or rubs. No elevation JVP ABD: active bowel sounds, soft,nondistended. Not tender. EXT: no cyanosis, clubbing, or edema Objective Last Vital Signs Temp 36.3 C L 09/20/24 11:01 Pulse 75 09/20/24 12:59 Resp 17 09/20/24 11:01 BP 137/41 L 09/20/24 11:01 Pulse Ox 91 L 09/20/24 12:59 Laboratory Results - last 24 hr 09/19/24 09/19/24 09/19/24 14:21 15:21 15:50 WBC 25.46 H* RBC 4.14 Hgb 12.2 Hct 38.0 MCV 92 MCH 29.5 MCHC 32.1 RDW 14.5 Plt Count 232 MPV 9.0 Immature Gran % 0.0 Neutrophils % 88.0 Band Neutrophils % 1 Lymphocytes % 4.0 Monocytes % 6.0 Eosinophils % 35.9 Basophils % 0.0 Metamyelocytes % 1 Nucleated RBC % 0.0 Absolute Neutrophils 22.66 H Absolute Lymphocytes 1.02 L Absolute Monocytes 1.53 H Absolute Eosinophils 9.14 H Absolute Basophils 0.00 RBC Morphology Normal VBG pH 7.41 VBG pCO2 45 VBG pO2 56 VBG HCO3 29 H VBG Total CO2 26 VBG O2 Saturation 90 VBG Base Excess 4 H Sodium 132 L Potassium 3.7 Chloride 96 L Carbon Dioxide 29.0 Anion Gap 7.0 BUN 7 Creatinine 0.8 Est GFR (CKD-EPI 2020) 74.44 Glucose 184 H Calcium 8.7 Magnesium 1.6 L Total Bilirubin 1.12 H AST 16 ALT 12 L Alkaline Phosphatase 83 Troponin I 19 16 NT-Pro-B Natriuret Pep 5431 H Total Protein 7.7 Albumin 2.7 L TSH 5.17 H Free T4 0.77 COVID-19 Source SARS-CoV-2 (PCR) Influenza Type A (PCR) Influenza Type B (PCR) RSV (PCR) 09/19/24 09/19/24 09/19/24 16:01 17:03 18:14 WBC RBC Hgb Hct MCV MCH MCHC RDW Plt Count MPV Immature Gran % Neutrophils % Band Neutrophils % Lymphocytes % Monocytes % Eosinophils % Basophils % Metamyelocytes % Nucleated RBC % Absolute Neutrophils Absolute Lymphocytes Absolute Monocytes Absolute Eosinophils Absolute Basophils RBC Morphology VBG pH Cancelled VBG pCO2 Cancelled VBG pO2 Cancelled VBG HCO3 Cancelled VBG Total CO2 Cancelled VBG O2 Saturation Cancelled VBG Base Excess Cancelled Sodium Potassium Chloride Carbon Dioxide Anion Gap BUN Creatinine Est GFR (CKD-EPI 2020) Glucose Calcium Magnesium Total Bilirubin AST ALT Alkaline Phosphatase Troponin I 17 NT-Pro-B Natriuret Pep Total Protein Albumin TSH Free T4 COVID-19 Source Nasopharynx SARS-CoV-2 (PCR) Negative Influenza Type A (PCR) Negative Influenza Type B (PCR) Negative RSV (PCR) Negative 09/20/24 06:15 WBC 20.02 H RBC 3.99 Hgb 11.9 Hct 34.8 L MCV 87 D MCH 29.8 MCHC 34.2 D RDW 14.3 Plt Count 223 MPV 9.4 Immature Gran % 1.1 Neutrophils % 89.3 Band Neutrophils % Lymphocytes % 4.3 Monocytes % 4.9 Eosinophils % 0.2 Basophils % 0.2 Metamyelocytes % Nucleated RBC % 0.0 Absolute Neutrophils 17.88 H Absolute Lymphocytes 0.86 L Absolute Monocytes 0.98 H Absolute Eosinophils 0.04 Absolute Basophils 0.04 RBC Morphology VBG pH VBG pCO2 VBG pO2 VBG HCO3 VBG Total CO2 VBG O2 Saturation VBG Base Excess Sodium 134 L Potassium 3.9 Chloride 98 Carbon Dioxide 31.8 Anion Gap 4.2 BUN 9 Creatinine 0.7 Est GFR (CKD-EPI 2020) 87.37 Glucose 157 H Calcium 8.9 Magnesium 2.2 Total Bilirubin AST ALT Alkaline Phosphatase Troponin I NT-Pro-B Natriuret Pep Total Protein Albumin TSH Free T4 COVID-19 Source SARS-CoV-2 (PCR) Influenza Type A (PCR) Influenza Type B (PCR) RSV (PCR) PAWSS Have you Been Recently Intoxicated or Drunk Within the Last 30 days?: No Have you Ever Experienced Previous Episodes of Alcohol Withdrawal?: No Have you ever Experienced Withdrawal Seizures?: No Have you ever Experienced Delirium Tremens(DT)s?: No Have you ever undergone Alcohol Rehabilitation Treatment (i.e, inpt ot outpatient treatment programs)?: No Have you ever Experienced Blackouts?: No Have you ever Combined Alcohol with other Downers within the last 90 days?: No Have you ever Combined Alcohol with any other Substance of Abuse during the last 90 days?: No Positive Blood Alcohol level on Presentation? [PCS.BAL]: Unable to Obtain Evidence of Increased Autonomic Activity (i.e. HR>120, tremor, sweating, agitation, nausea)?: No Result: 0 Time Spent with Patient Time Spent with Patient: 35-49 minutes Time was spent: preparing to see the patient(eg.review tests), obtaining and/or reviewing separately otained hiistory, ordering medications,tests, procedures, referring, communicating with other health child care nurse, indepentently interpreting results, counseling the patient and care coordination
[2024-09-20] MEDS: cefTRIAXone 2 GM/50 ML BAG IVPB (14:41)
[2024-09-20] MEDS: Montelukast 10 MG TAB PO (20:50)
[2024-09-20] MEDS: Gabapentin 300 MG CAP PO (20:50)
[2024-09-20] MEDS: Enoxaparin 40 MG/0.4 ML SYR SC (21:00)
[2024-09-20] MEDS: Budesonide 0.5 MG/2 ML UPD VIAL IH (21:14)
[2024-09-21] VITALS (12 sets, daily range): BP systolic 148–165; BP diastolic 57–78; PULSE 65–76; RESP 8–21; TEMP 36–36.7; O2SAT 91–98
[2024-09-21] MEDS: Benzocaine/Menthol LOZG 15/BOX 1 EACH SUC ×5 (00:05→22:51)
[2024-09-21] MEDS: Levothyroxine 50 MCG TAB 150 MCG PO (05:43)
[2024-09-21] MEDS: Albuterol/Ipratropium 3 ML UPD VIAL UPD ×4 (08:46→20:49)
[2024-09-21] MEDS: Budesonide/Formoterol 160/4.5 6 GM 60 PUFF INH IH ×2 (08:53→20:51)
[2024-09-21] MEDS: Tiotropium Bromide-Respimat 10 PUFF INH 2 PUFF IH (08:53)
[2024-09-21] MEDS: DOXYCYCLINE 100 MG in Normal Saline 100 ML IVPB ×2 (09:13→20:25)
[2024-09-21] MEDS: Normal Saline Flush 10 ML SYR IVP ×4 (09:14→20:28)
[2024-09-21] MEDS: Escitalopram 20 MG TAB PO (09:16)
[2024-09-21] MEDS: predniSONE 20 MG TAB 40 MG PO (09:16)
[2024-09-21] MEDS: Benzonatate 200 MG CAP PO ×3 (09:16→20:27)
[2024-09-21] MEDS: Furosemide 20 MG TAB PO (09:17)
[2024-09-21] MEDS: Oxybutynin 5 MG TAB PO (09:17)
[2024-09-21] MEDS: buPROPion-XL 150 MG TABCR 300 MG PO (09:17)
[2024-09-21] MEDS: guaiFENesin 600 MG TABCR PO ×2 (09:17→20:27)
--- NOTE | 2024-09-21 10:04 | CMPROGNOTE_ITS ---
Date of service: 09/21/24 Time of Service: 10:05 Care Management Progress Note Progress Note Text Progress Note Text: Genna was sitting up in bed visiting with her daughter Nano when CM met with her. Both Genna and her daughter had requested information about Pulmonary Rehab and expressed a desire to have Genna attend locally if possible. CM was innformed by RT that the Pulmonary Rehab program at [facility] is on hold as there is no longer a Mumps Developer on staff. They also requested that CM contact Genna's Mumps Developer at [facility], a Dr.Jessica Ramos. CM contacted the office and informed them that she was hospitalized with pneumonia again. This is her 3rd hospitalization since May for pneumonia. CM also mentioned to [facility] that she was concerned about missing her bi-monthly does of [place]. CM was told that it is not recommended while she is hospitalized and that she should resume the injections after discharge. This information was relayed to Yaisr as well as the provider.. Pt has recommended new home health PT at discharge. Gene johnson Genna's PCP is in [place]. CM tried to reach the office to see if they would follow home health orders remotely, but the office is closed until , 09/24/24. Clinically, Genna is doing much better, Her cough is significantly improved and her oxygen needs are now at or below her baseline. Contacts: PCP - [facility] - Samina Hurtado MD [facility] Mumps Developer: Carole Ramos MD fax: Discharge Potential Discharge Needs: PCP F/U Appt Anticipated Barriers to Discharge: Other (family's need to rearrange home for Genna) Patient/Family Education Needs: Review discharge instructions, discuss Ask Me Three Transportation: Private vehicle Plan: Anticipate Genna will be discharged home to her daughter's home in [place] when medically ready. She will follow up with her community providers and plan of care and transport with family. CM will follow and continue to support discharge needs. SDOH(Care Management) Screening Will the Patient Participate in the Screening?: Yes Do you worry about having a steady place to live?: no Problems where you live: smoke detectors missing or not working and Carbon monoxide detectors missing or not working In the past 12 months, have you had to go without electric, gas, oil or water in your home?: no Have you or anyone in your house had to go without enough food to eat?: no Has lack of transportation kept you from medical appointments or from doing things needed for daily living?: no Has anyone in your support network made you feel unsafe for any reason?: no Health Related Social Needs Health related social needs: inadequate housing(Z59.1)
--- NOTE | 2024-09-21 11:27 | PT.INIE ---
PT Notes Visit Reasons: pneumonia, COPD exacerbation Inpatient Physical Therapy Evaluation Date: 09/21/2024 Referring Doctor: Zhnana Haq NP PT Orders: PT CONSULT: Safety Consult for D/C Precautions: Continuous Oxygen, Patient Profile/Admitting Diagnosis: 78 female with chronic respiroatory failure a/w COPD on 4-6 liters home oxygen who is presenting with 2-3 days of progressive cough and shortness of breath. She is visiting family from [place], [place] for the holidays. She started coughing 3 days ago. She is using her nebulizer with some help, using up to 10 liters of oxygen up from her usual 4 liters at rest and 6-7 liters with activity along with her regular inhalers. She typically takes 20mg daily of furosemide but left this at home so has been without it for 5 days. She states she has been on oxygen since her open heart surgery in 2019. The surgery was for a myxoma, and she states she was told she had heart failure but she never has had a heart attack, CABG, or stenting. Pt was treated with IV antibiotics, Solumedrol nebs and inhalers as appropriate. pt transferred to Med surg unit for medical management and PT Consult placed. 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 She has a concentrator within her home and a portable oxygen concentrator for community. She is independent without assistive device ambulation, ADL, cooking, home management, shopping, driving, medication management and iADLs. Pt has shower stall no other equipment in bathroom. Equipment Owned/DME: portable concentrator, oxygen concentrator. Subjective: Pt reports she has to increase her oxygen to 6 L/min with activity and has her oxygen at rest at 3-4L/Min. Pt noted she ocassionally will increase it to 10 L for indoor household tasks such as carrying laundry basket and washing dishes. Pt reports she is frustrated as she feels everyone is treating me like a child. Objective: General Observation: female seated in chair with IV infusing RUE and oxygen at 2L/Min. Pt noted Mental Status: alert and oriented x 4, cooperative with this PT and agreeable to participate in eval. Pain: denies pain Vital Signs: oxygen sat at rest 2 L/min 95%, with activity 3L/min : 77% oxygen therefore increased to 6L/min 91% ROM: Right Upper Extremity: WNL Left Upper Extremity: WNL Right Lower Extremity: WNL Left Lower Extremity: WNL Strength: Right Upper Extremity: 5/5 Left Upper Extremity: 5/5 Right Lower Extremity: Hip flexion: 3- /5; hip abduction: 3-/5; hip extension: 3- /5; knee extension: 3 /5; knee flexion:3 /5 ankle DF: 3 /5 ; ankle PF: 3 /5 Left Lower Extremity: Hip flexion: 3- /5; hip abduction: 3-/5; hip extension:3- /5; knee extension: 3 /5; knee flexion:3 /5 ankle DF: 3/5 ; ankle PF: 3 /5 Sensation: intact Bed Mobility/Transfers: CGA for bed mobility with increased time for pacing, transfers with CGA without FWW, supervision with FWW Gait: ambulate 100 feet with FWW CGA on level surfaces requiring 6L/min oxygen and 2 standing rests. Balance: Static Sitting: normal Dynamic Sitting:good Static Standing: good Dynamic Standing: Fair Special Tests: Mobility Limitations Standardized Measure [facility] AM-PAC 6 clicks Basic Mobility Inpatient Short Form: Raw Score: 19 CMS Score: 41.77% Informed Consent/Education: Patient instructed in purpose of PT consult and plan of care. Assessment: Patient is a 78 year old female referred to physical therapy services with the diagnosis of community acquired pneumonia, acute on chronic hypoxic respiratory failure. Patient presents with clinical signs and symptoms consistent with admitting diagnosis, as demonstrated by the following impairment level findings: 1.Decreased strength BLE major muscle groups 2. decline in balance reactions in standing 3. impaired standing functional activity tolerance 4. impaired pacing, energy conservation and breath control Impairments are contributing to the following functional limitations: 1. AMPAC score. 2. decline in functional transfers 3. difficulty ambulation without assistance and assistive device 4. difficulty performing stairs alone safely 5. increased time to complete ADL /mobility tasks 6. increased risk for falls Patient is assessed as a Moderate 29264 complexity based on the following: History: 78 yo female with significant past medical history as outlined above Examination: demonstrates impairments in strength, balance, and mobility level with underlying impairments and functional limitations as described above. Presentation: evolving Decision Making: moderate Goals: Goals X1 week 1. independent bed mobility 2. independent transfers 3. supervised ambulation with LRD >150 feet level surfaces with rest periods as needed to maintain sats >90% 4. supervised 1 step with rail with rest periods as needed to maintain sats >90% Plan of Care/Treatment Plan: 1-2x/day, 7 days/week x 1 week. Plan of care has been reviewed with the NURSING INFORMATICS SPECIALIST providing the service under Physical Therapy direction. Initiate Physical Therapy intervention for strengthening, bed mobility, transfers, gait, stairs, balance training, use of assistive device. DISCHARGE RECOMMENDATIONS: [] [] Home with no services [] [X Home with services HHPT [] Home with outpatient PT [] [] SNF for continued rehabilitation [] [] [facility] [] [] SNF versus LTC based on ability to participate and progress [] TREATMENT CODE/TIME: 35980, [id number]
--- NOTE | 2024-09-21 12:05 | RESPIRATORY ---
Oskar confirmed the most recent O2 order was received on 08/12/[address] Carole Ramos (electric meter repairer apprentice at [facility]) for 2L day/night.
--- NOTE | 2024-09-21 13:36 | PGE_ITS ---
Date of Service Date of service: 09/21/24 Time of Service: 13:37 Assessment and Plan Assessment and plan (1) Acute on chronic hypoxic respiratory failure: Status: Acute Assessment and plan: In setting of asthma/COPD overlap syndrome, with home oxygen requirement. Principle cause is pneumonia with COPD/asthma exacerbation. 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 Stable on 3 liters NC at rest, around her home baseline, but still poor exercise tolerance. Continue to monitor. 09.21.24 Vital signs this am O2 at 96% 4LNC. (2) Community acquired pneumonia: Status: Acute Assessment and plan: Started on ceftriaxone and azithromycin, transitioned to doxycycline. No known MRSA or pseudomonas history or risk factors, improving with this treatment. 09.21.24 Pt states that she has had pneumonia 3 times this [address]. Will place speech evaluation as she could be aspirating. (3) COPD with exacerbation: Status: Acute Assessment and plan: Started on solumedrol along with nebs, antibiotics. continue home inhalers and budesonide nebs. Transition to oral prednisone. (4) Hyponatremia: Status: Acute Assessment and plan: Mild, a/w pneumonia, improving. 09.21.24 will recheck cmp in am (5) Hypomagnesemia: Status: Acute Assessment and plan: normalized after IV supplement (6) DVT prophylaxis: Status: Acute Assessment and plan: enoxaparin Subjective Subjective Interval history since last seen: Pt seen and examined in her room this am. Main complaint was of a nonproductive cough. POC d/w pt as well as bedside nurse during MDR. Exam Narrative Exam Narrative: GEN: Alert and oriented x 4, sitting up in bed. No acute distress at rest. LUNGS: Improved air movement diffusely. slight rales on right side. Mild diffuse wheeze on inspiration. Pt also with mild prolonged expiration CV: RRR with no murmurs, gallops, or rubs. No elevation JVP ABD: active bowel sounds, soft,nondistended. Not tender. EXT: no cyanosis, clubbing, or edema Objective Last Vital Signs Temp 36.7 C 09/21/24 11:24 Pulse 71 09/21/24 13:01 Resp 18 09/21/24 12:55 BP 165/76 H 09/21/24 11:24 Pulse Ox 91 L 09/21/24 12:55 PAWSS Have you Been Recently Intoxicated or Drunk Within the Last 30 days?: No Have you Ever Experienced Previous Episodes of Alcohol Withdrawal?: No Have you ever Experienced Withdrawal Seizures?: No Have you ever Experienced Delirium Tremens(DT)s?: No Have you ever undergone Alcohol Rehabilitation Treatment (i.e, inpt ot outpatient treatment programs)?: No Have you ever Experienced Blackouts?: No Have you ever Combined Alcohol with other Downers within the last 90 days?: No Have you ever Combined Alcohol with any other Substance of Abuse during the last 90 days?: No Positive Blood Alcohol level on Presentation? [PCS.BAL]: Unable to Obtain Evidence of Increased Autonomic Activity (i.e. HR>120, tremor, sweating, agitation, nausea)?: No Result: 0 Time Spent with Patient Time Spent with Patient: 25-34 minutes Time was spent: preparing to see the patient(eg.review tests), obtaining and/or reviewing separately otained hiistory, ordering medications,tests, procedures, referring, communicating with other health career development coordinator/teacher, indepentently interpreting results, counseling the patient and care coordination
[2024-09-21] MEDS: cefTRIAXone 2 GM/50 ML BAG IVPB (14:03)
--- NOTE | 2024-09-21 15:33 | W.SPSTE ---
Date of service: 09/21/24 Time of Service: 15:00 Subjective Clinical (Bedside) Swallow Evaluation Speech Language Pathology Referred by: Esdras Rodriguez Referral Type: Clinical Swallow Evaluation Reason for Referral/HPI: Genna Ashton is an 78 yo female who was adm to [facility] with R lung pna. [employer] referral placed secondary to question o aspiration as this is Jone's third pneumonia this year. Jone lives in [place] and was visiting family in the area for [place]. She denies swallow concerns or hx GERD. She states her pneumonia was due to 'pushing herself'- she was hospitalized in June from pneumonia and pushed herself to travel to [place] to visit family. Nsg declined concerns. [employer]ER IMPRESSIONS & RECOMMENDATIONS: Non-instrumental swallow evaluation competed, revealing WFL oral pharyngeal swallow function for age. No overt s/s aspiration were appreciated. Education was provided to patient re: heightened risk for developing adverse pulmonary event from microaspiration events, either from prandial or reflux-related aspiration. Standard swallowing precautions and reflux precautions were discussed at length. Jone is already utilizing these strategies, including small/slow bites and sips, upright 90 degree positioning with meals, staying upright after eating, and ceasing PO by 6PM (goes to bed at 10PM). FURTHER [employer] F[employer]ER [employer] SEALER SERVICES: No further [employer] services indicated Diet Recommendations: SOLIDS L7 Regular solids. Favor soft solids LIQUIDS L0 thin liquids MEDICATIONS as tolerated SUPERVISION [place] SUBJECTIVE: Patient received alert/awake, agreeable to evaluation Pain Reported? None Baseline Swallow Function: Patient denies swallowing difficulty prior to admission and eats a regular diet at baseline. PO Trials Assessed: IDDSI 0 Thin Liquids (Thin liquids via straw) IDDSI 7EC Easy to Chew Solid (Fig castillo cookie) Oral Mechanism Examination: Pt edentulous during study. She typically wears upper/lower dentures, not currently available. Oral mucosa is WFL. Cranial Nerve Assessment: CN V ? Trigeminal Facial Sensation WNL Jaw Strength/ROM WNL ?WNL CN VII- Facial WNL labial ROM, strength, coordination. WNL lingual sensation WNL CN IX ? Glossopharyngeal WNL palatal elevation with phonation. No evidence of nasal emissions WNL CN X ? Vagus WNL Vocal quality and volume. Strong/sharp volitional cough WNL CX XII ? Hypoglossal WNL lingual ROM, strength, coordination WNL Oral Phase Findings: Slow/prolonged but WFL Pharyngeal Phase Findings: WFL No coughing, throat clearing, change in vocal quality Single swallow per bite/sip Respiratory Status: 2.5LPM ASSESSMENT: Further [employer] Services not indicated. Recommendation at Discharge: N/A Suggested Referrals: N/A Recommended Procedures: N/A Education Provided to: Nursing, Patient Topics Addressed: [employer]ALER findings, Safe swallowing strategies, Reflux strategies PLAN: Evaluation only [employer] CPT Code: 95532 Clinical Swallowing Evaluation TOTAL TIME: 20 Minutes [id number]
[2024-09-21] MEDS: Montelukast 10 MG TAB PO (20:27)
[2024-09-21] MEDS: Gabapentin 300 MG CAP PO (20:27)
[2024-09-21] MEDS: Enoxaparin 40 MG/0.4 ML SYR SC (20:27)
[2024-09-22] VITALS (12 sets, daily range): BP systolic 111–176; BP diastolic 63–93; PULSE 66–75; RESP 3–20; TEMP 36.1–36.7; O2SAT 88–96
[2024-09-22] MEDS: guaiFENesin/CODEINE PHOSPHATE 10 ML CUP 5 ML PO ×2 (03:13→21:49)
[2024-09-22] MEDS: Benzocaine/Menthol LOZG 15/BOX 1 EACH SUC ×3 (03:14→23:16)
[2024-09-22] MEDS: Levothyroxine 50 MCG TAB 150 MCG PO (06:05)
[2024-09-22 07:09] LABS: Abs Immature Grans 0.22 10^3/uL (0.0-0.06); Absolute Basophil Count 0.03 10^3/uL (0.0-0.2); Absolute Lymphocyte Count 1.94 10^3/uL (1.2-3.4); Absolute Monocyte Count 1.62 10^3/uL (0.1-0.8); Basophils % 0.2 %; HCT 34.9 % (36.0-46.0); HGB 11.7 g/dL (11.2-15.7); Immature Grans % 1.5 %; Lymphocytes % 12.9 %; MCHC 33.5 % (32.0-36.0); MCV 87 fL (80-95); MPV 9.2 fL (8.0-11.0); Neutrophils % 74.6 %; Platelet Count 300 10^3/uL (130-400); RBC 4.03 10^6/uL (3.93-5.22); RDW 14.1 % (11.7-14.6); RDW-SD 44.9 fL; WBC 15.04 10^3/uL (4.4-10.8)
[2024-09-22 07:30] LABS: ALT 23 U/L (14-59); AST 21 U/L (15-37); Albumin 2.6 g/dL (3.4-5.0); Alkaline Phosphatase 69 U/L (46-116); Anion Gap 4.3 mmol/L (3-11); BUN 8 mg/dL (7-18); Bilirubin, Total 0.36 mg/dL (0.2-1.0); CO2 32.7 mmol/L (21.0-32.0); CREATININE 0.7 mg/dL (0.55-1.02); Calcium 8.7 mg/dL (8.5-10.1); Chloride 97 mmol/L (98-107); Estimated GFR 87.37 (mL/min/1.73m2); Glucose 73 mg/dL (74-106); Potassium 3.2 mmol/L (3.5-5.1); Sodium 134 mmol/L (136-145); Total Protein 6.9 g/dL (6.4-8.2)
[2024-09-22] MEDS: DOXYCYCLINE 100 MG in Normal Saline 100 ML IVPB ×2 (07:32→20:23)
[2024-09-22] MEDS: Normal Saline Flush 10 ML SYR IVP ×3 (07:33→20:25)
[2024-09-22] MEDS: Oxybutynin 5 MG TAB PO (07:35)
[2024-09-22] MEDS: Furosemide 20 MG TAB PO (07:35)
[2024-09-22] MEDS: Benzonatate 200 MG CAP PO ×3 (07:36→20:25)
[2024-09-22] MEDS: buPROPion-XL 150 MG TABCR 300 MG PO (07:36)
[2024-09-22] MEDS: guaiFENesin 600 MG TABCR PO ×2 (07:36→20:25)
[2024-09-22] MEDS: Escitalopram 20 MG TAB PO (07:36)
[2024-09-22] MEDS: predniSONE 20 MG TAB 40 MG PO (07:36)
[2024-09-22 07:37] LABS: Absolute Neutrophil Count 11.22 10^3/uL (1.2-6.7)
[2024-09-22 07:38] LABS: Monocytes % 10.8 %
[2024-09-22] MEDS: Budesonide/Formoterol 160/4.5 6 GM 60 PUFF INH IH ×2 (07:56→20:30)
[2024-09-22] MEDS: Tiotropium Bromide-Respimat 10 PUFF INH 2 PUFF IH (07:56)
[2024-09-22] MEDS: Albuterol/Ipratropium 3 ML UPD VIAL UPD ×4 (07:57→20:25)
--- NOTE | 2024-09-22 09:33 | PT.INTREAT ---
PT Notes Visit Reasons: pneumonia, COPD exacerbation Inpatient Physical Therapy Treatment Note [facility] Date: 09/22/2024 PRECAUTIONS: Activity as tolerated. On continuous oxygen supplementation at 4 L/min at baseline. SUBJECTIVE: Complained of pain at IV site, on IV Doxycycline. Requested to not walk while on IV due to pain in L forearm, did agree to seated exercises for this session. OBJECTIVE: Seate don bedside chair. On oxygen NC. IV through the L UE.?Cold pack over painful IV site.? PAIN: Moderate pain in L forearm at IV site VITALS: Closely monitored by nursing staff ? Therapeutic Exercises: Direct one-on-one instruction in therapeutic exercises to develop strength, endurance, range of motion and flexibility. Seated marches x 10 Deep breathing exercises with chest expansion x 5 LAQs x 10 Deep breathing exercises with chest expansion x 5 Seated clam shells x 10 Deep breathing exercises with chest expansion x 5 Ankle Df/AR x 10 Deep breathing exercises with chest expansion x 5 Seated slide outs x 10 Deep breathing exercises with chest expansion x 5 ASSESSMENT:? Anxious about increased pain with weight bearing through L UE due to pain report from Doxycycline IV site. Agreeable to seated exercises and then to walking later today. PLAN: Continue per PT POC to achieve initially established goals. DISCHARGE RECOMMENDATION: Home with PT TREATMENT CODE/TIME: 89905 x 23 minutes for 2 units (9:33-9:56).
[2024-09-22] MEDS: cefTRIAXone 2 GM/50 ML BAG IVPB (13:17)
--- NOTE | 2024-09-22 13:42 | PGE_ITS ---
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 Principle cause is pneumonia with COPD/asthma exacerbation. 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 Stable on 3 liters NC at rest, around her home baseline, but still poor exercise tolerance. Continue to monitor. 09.21.24 Vital signs this am O2 at 96% 4LNC. 09.22.24 Pt continues to have a higher than normal oxygen requirement. Will c/w doxy/duoneb/budesonide/corticosteroids/prednisone/rocephin/spiriva. (2) Community acquired pneumonia: Status: Acute Assessment and plan: Started on ceftriaxone and azithromycin, transitioned to doxycycline. No known MRSA or pseudomonas history or risk factors, improving with this treatment. 09.21.24 Pt states that she has had pneumonia 3 times this year. Will place speech evaluation as she could be aspirating. 09.22.[address] note [employer] IMPRESSIONS & RECOMMENDATIONS: Non-instrumental swallow evaluation competed, revealing WFL oral pharyngeal swallow function for age. No overt s/s aspiration were appreciated. Education was provided to patient re: heightened risk for developing adverse pulmonary event from microaspiration events, either from prandial or reflux-related aspiration. Standard swallowing precautions and reflux precautions were discussed at length. Jone is already utilizing these strategies, including small/slow bites and sips, upright 90 degree positioning with meals, staying upright after eating, and ceasing PO by 6PM (goes to bed at 10PM). (3) COPD with exacerbation: Status: Acute Assessment and plan: Started on solumedrol along with nebs, antibiotics. continue home inhalers and budesonide nebs. Transition to oral prednisone. (4) Hyponatremia: Status: Acute Assessment and plan: Mild, a/w pneumonia, improving. 09.21.24 will recheck cmp in am 09.22.24 Sodium is 134 today. No symptoms (5) Hypomagnesemia: Status: Acute Assessment and plan: normalized after IV supplement (6) DVT prophylaxis: Status: Acute Assessment and plan: enoxaparin (7) Hypokalemia: Status: Acute Assessment and plan: will give oral replacement Subjective Subjective Interval history since last seen: PT seen and examined in her room this afternoon. PT continues to have a cough but states that she is feeling better overall. POC d/w the pt as well as the bedside nurse during MDR. Exam Narrative Exam Narrative: GEN: Alert and oriented x 4, sitting up in bed. No acute distress at rest. LUNGS: Improved air movement diffusely. slight rales on right side. Mild diffuse wheeze on inspiration. Pt also with mild prolonged expiration CV: RRR with no murmurs, gallops, or rubs. No elevation JVP ABD: active bowel sounds, soft,nondistended. Not tender. EXT: no cyanosis, clubbing, or edema no cobblestoning in pharynx Objective Last Vital Signs Temp 36.5 C 09/22/24 11:54 Pulse 75 09/22/24 11:54 Resp 19 09/22/24 11:54 BP 111/81 09/22/24 11:54 Pulse Ox 92 09/22/24 11:54 Laboratory Results - last 24 hr 09/22/24 06:20 WBC 15.04 H RBC 4.03 Hgb 11.7 Hct 34.9 L MCV 87 MCH 29.0 MCHC 33.5 RDW 14.1 Plt Count 300 MPV 9.2 Immature Gran % 1.5 Neutrophils % 74.6 Lymphocytes % 12.9 Monocytes % 10.8 Eosinophils % 0.0 Basophils % 0.2 Nucleated RBC % 0.0 Absolute Neutrophils 11.22 H Absolute Lymphocytes 1.94 Absolute Monocytes 1.62 H Absolute Eosinophils 0.00 Absolute Basophils 0.03 Sodium 134 L Potassium 3.2 L Chloride 97 L Carbon Dioxide 32.7 H Anion Gap 4.3 BUN 8 Creatinine 0.7 Est GFR (CKD-EPI 2020) 87.37 Glucose 73 L Calcium 8.7 Total Bilirubin 0.36 AST 21 ALT 23 Alkaline Phosphatase 69 Total Protein 6.9 Albumin 2.6 L PAWSS Have you Been Recently Intoxicated or Drunk Within the Last 30 days?: No Have you Ever Experienced Previous Episodes of Alcohol Withdrawal?: No Have you ever Experienced Withdrawal Seizures?: No Have you ever Experienced Delirium Tremens(DT)s?: No Have you ever undergone Alcohol Rehabilitation Treatment (i.e, inpt ot outpatient treatment programs)?: No Have you ever Experienced Blackouts?: No Have you ever Combined Alcohol with other Downers within the last 90 days?: No Have you ever Combined Alcohol with any other Substance of Abuse during the last 90 days?: No Positive Blood Alcohol level on Presentation? [PCS.BAL]: Unable to Obtain Evidence of Increased Autonomic Activity (i.e. HR>120, tremor, sweating, agit ation, nausea)?: No Result: 0 Time Spent with Patient Time Spent with Patient: 25-34 minutes Time was spent: preparing to see the patient(eg.review tests), obtaining and/or reviewing separately otained hiistory, ordering medications,tests, procedures, referring, communicating with other health continuum of care manager, indepentently interpreting results, counseling the patient and care coordination
--- NOTE | 2024-09-22 13:45 | PT.INTREAT ---
PT Notes Visit Reasons: pneumonia, COPD exacerbation Inpatient Physical Therapy Treatment [facility] Date: 09/22/2024 PRECAUTIONS:oxygen continuous currently 4L/min increase to 6l/min as needed for functional tasks SUBJECTIVE: Pt reports she feels much better than she did yesterday and was able to slee although she had odd dreams OBJECTIVE: alert female seated in chair with BLE elevated utilizing her Acapella device. Oxygen at 4L/min via NC ? PAIN:denies VITALS: ? Pre-Treatment: 4L 97 % rest seated ? Post-Treatment: post amb on 4 L/min 92% then sats decreased as pt began coughing with sat to 86% able to recover to 95% with PLB and able to expectorate sputum.within 2 mins Therapeutic Activities (93873): Direct one-on-one instruction in dynamic activities to improve functional performance. ? BED MOBILITY/TRANSFERS? Sit-stand: Independent? Stand-sit: Independent ? Bed-Chair: SBA without AD and with FWW ? x5? Chair-bed: SBA without AD and with FWW x 5 Provided skilled cues and instruction on performance and technique throughout. Patient education regarding pacing and breathing techniques to maximize activity tolerance? Ambulation:? Assistive Device: FWW? Weight bearing:full Assist: SBA ? Distance:? 200 feet with 1 stand rest ? Deviation:reciprocal pattern ? ASSESSMENT:Pt demonstrates improvement in functional activity tolerance today. pt benefits from cues for pacing to reduce speed take standing rests instead of rushing through tasks and recovering after completed. Pt to continue to progress with ambulation without FWW short distances and stairs. Session shortened d/t need for IV antibiotics pt required new IV access d/t infiltrate. MD present for part of session. PLAN: 1-2x/day, 7 days/week x 1 week. Plan of care has been reviewed with the [facility]STITUTE DIRECTOR providing the service under Physical Therapy direction. Initiate Physical Therapy intervention for strengthening, bed mobility, transfers, gait, stairs, balance training, use of assistive device. TREATMENT CODE/TIME: 62640/ [id number] DISCHARGE RECOMMENDATION: Home with HH PT
--- NOTE | 2024-09-22 15:33 | PDOC.CMPRO ---
Date of service: 09/22/24 Time of Service: 14:00 Care Management Progress Note Progress Note Text Progress Note Text: Genna was sitting up in the bedside chair when CM met with her today. She was very pleasant and easy to talk with. She is currently arguing with her daughter, because her daughter does not think she should be living alone. Genna feels that she is fully capable of taking care of herself, she drives, does her own shopping and cooking, and is doing just fine. She does not particularly care for people in group settings, and does not feel that she would want to live in a custodial, or even go to a rehab. Genna also has a good, supportive group from her restorationism, whom she feels are like family. Discharge Plan: Anticipate Genna will be discharged home to her daughter's home in [place] when medically ready. She will have HH PT- [facility], provided that her PCP is willing to be responsible for these orders. She will return to her own home once she feels strong enough to drive and return to her independent lifestyle. She will follow up with her community providers and plan of care and transport with family. CM will follow and continue to support discharge needs. Social Determinants of Health Screening Social Determinants of Health last assessed: 09/22/24 Will the Patient Participate in the Screening?: Yes Do you worry about having a steady place to live?: no Problems where you live: smoke detectors missing or not working and Carbon monoxide detectors missing or not working In the past 12 months, have you had to go without electric, gas, oil or water in your home?: no Have you or anyone in your house had to go without enough food to eat?: no Has lack of transportation kept you from medical appointments or from doing things needed for daily living?: no Has anyone in your life made you feel unsafe or unsupported?: no How hard is it for you to pay for the very basics like food, housing, medical care, and heating? Would you say it is:: Not hard at all Do you want help finding or keeping work or a job?: I do not need or want help If for any reason you need help with day-to-day activities such as bathing, preparing meals, shopping, managing finances, etc., do you get the help you need?: I get all the help I need How often do you feel lonely or isolated from those around you?: Rarely Do you speak a language other than Maltese at home?: No Does the patient want assistance with any of the above?: Yes Health Related Social Needs Health related social needs: inadequate housing (Z59.1) and feeling lonely/isolated (Z60.8)
--- NOTE | 2024-09-22 15:52 | CHAPLAIN ---
Genna was visiting family in the area for the holidays when she became ill and came to the ED. She lives in [place], [place]. Until recently and granddaughter lived with her. She'll be staying in the area with her daughter for a while but is looking forward to returning to her home in [place], and finding someone to live with. She shared some personal history and told me about her various family members. She is devout Christianity and wants to be able to continue to attend daily mass. Her granddaughter is getting here and is attending counseling sessions with Fr. Montoya. He came in to [facility] to meet Genna.
[2024-09-22] MEDS: Potassium Chloride 20 MEQ TABCR PO (20:25)
[2024-09-22] MEDS: Enoxaparin 40 MG/0.4 ML SYR SC (20:25)
[2024-09-22] MEDS: Gabapentin 300 MG CAP PO (20:25)
[2024-09-22] MEDS: Montelukast 10 MG TAB PO (20:25)
[2024-09-22] MEDS: Sodium Chloride-Nasal SPRAY-ADULT 44 ML BTL NS (20:35)
[2024-09-22] MEDS: Acetaminophen 325 MG TAB PO (20:38)
[2024-09-22] MEDS: Polyethylene Glycol 3350 17 GM PACKET PO (23:10)
[2024-09-22] MEDS: Milk of Magnesia 30 ML CUP PO (23:10)
[2024-09-23] VITALS (14 sets, daily range): BP systolic 119–168; BP diastolic 51–89; PULSE 65–78; RESP 5–20; TEMP 36.4–36.8; O2SAT 90–95
[2024-09-23] MEDS: guaiFENesin/CODEINE PHOSPHATE 10 ML CUP 5 ML PO ×2 (03:18→21:06)
[2024-09-23] MEDS: Acetaminophen 325 MG TAB PO (03:18)
[2024-09-23] MEDS: Benzocaine/Menthol LOZG 15/BOX 1 EACH SUC ×2 (03:19→21:11)
[2024-09-23] MEDS: Sodium Chloride-Nasal SPRAY-ADULT 44 ML BTL NS ×2 (03:20→21:11)
[2024-09-23] MEDS: Levothyroxine 50 MCG TAB 150 MCG PO (05:17)
[2024-09-23 06:48] LABS: Abs Immature Grans 0.32 10^3/uL (0.0-0.06); Absolute Lymphocyte Count 2.52 10^3/uL (1.2-3.4); Absolute Monocyte Count 1.36 10^3/uL (0.1-0.8); Basophils % 0.3 %; Eosinophils % 0.1 %; HCT 36.4 % (36.0-46.0); HGB 11.8 g/dL (11.2-15.7); Lymphocytes % 15.8 %; MCH 28.9 pg (27.0-33.0); MCHC 32.4 % (32.0-36.0); MCV 89 fL (80-95); MPV 9.2 fL (8.0-11.0); Monocytes % 8.5 %; Neutrophils % 73.3 %; Platelet Count 298 10^3/uL (130-400); RBC 4.08 10^6/uL (3.93-5.22); RDW 14.2 % (11.7-14.6); RDW-SD 45.9 fL; WBC 15.98 10^3/uL (4.4-10.8)
[2024-09-23 06:58] LABS: Absolute Basophil Count 0.05 10^3/uL (0.0-0.2); Absolute Eosinophil Count 0.02 10^3/uL (0.0-0.7); Absolute Neutrophil Count 11.71 10^3/uL (1.2-6.7)
[2024-09-23 07:19] LABS: ALT 17 U/L (14-59); AST 17 U/L (15-37); Albumin 2.6 g/dL (3.4-5.0); Alkaline Phosphatase 65 U/L (46-116); Anion Gap 3.1 mmol/L (3-11); BUN 11 mg/dL (7-18); Bilirubin, Total 0.37 mg/dL (0.2-1.0); CO2 34.9 mmol/L (21.0-32.0); CREATININE 0.8 mg/dL (0.55-1.02); Calcium 8.6 mg/dL (8.5-10.1); Chloride 98 mmol/L (98-107); Estimated GFR 74.44 (mL/min/1.73m2); Glucose 68 mg/dL (74-106); Potassium 3.5 mmol/L (3.5-5.1); Sodium 136 mmol/L (136-145); Total Protein 6.7 g/dL (6.4-8.2)
[2024-09-23] MEDS: Albuterol/Ipratropium 3 ML UPD VIAL UPD ×4 (08:00→20:11)
[2024-09-23] MEDS: Budesonide/Formoterol 160/4.5 6 GM 60 PUFF INH IH ×2 (08:00→20:12)
[2024-09-23] MEDS: Tiotropium Bromide-Respimat 10 PUFF INH 2 PUFF IH (08:00)
[2024-09-23] MEDS: guaiFENesin 600 MG TABCR PO ×2 (08:10→21:08)
[2024-09-23] MEDS: Benzonatate 200 MG CAP PO ×3 (08:10→21:08)
[2024-09-23] MEDS: Potassium Chloride 20 MEQ TABCR PO ×2 (08:10→21:08)
[2024-09-23] MEDS: Furosemide 20 MG TAB PO (08:10)
[2024-09-23] MEDS: buPROPion-XL 150 MG TABCR 300 MG PO (08:10)
[2024-09-23] MEDS: predniSONE 20 MG TAB 40 MG PO (08:10)
[2024-09-23] MEDS: Normal Saline Flush 10 ML SYR IVP ×2 (08:11→21:09)
[2024-09-23] MEDS: DOXYCYCLINE 100 MG in Normal Saline 100 ML IVPB ×2 (08:11→21:07)
[2024-09-23] MEDS: Escitalopram 20 MG TAB PO (08:11)
[2024-09-23] MEDS: Oxybutynin 5 MG TAB PO (08:11)
--- NOTE | 2024-09-23 12:14 | PT.INTREAT ---
Date of service: 09/23/24 Time of Service: 10:50 PT Notes Visit Reasons: pneumonia, COPD exacerbation Inpatient Physical Therapy Treatment Note [facility] Date: 09/23/2024 PRECAUTIONS: Continuous Oxygen, fall, standard SUBJECTIVE: Attempted to see patient earlier in the morning but she indicated she was coughing a lot and would like to wait a bit. Was able to expectorate sputum while I was gone and stated she was ready to do her therapy. Agreeable to ambulating approximately 20 minutes later. Patient did complain of feeling dizzy once almost back to room but refused to take a break, just wanted to get back to her chair. W/C was behind her. OBJECTIVE: Alert female seated in chair with BLE elevated. Oxygen at 2L/min via NC ? PAIN: No complaints of pain offered. Therapeutic Activities (38833g1): Direct one-on-one instruction in dynamic activities to improve functional performance. ? BED MOBILITY/TRANSFERS? Sit-stand: SBA ? Stand-sit: SBA? GAIT? Assistive Device: FWW ? Weight bearing: Full Assist: SBA ? Distance:? 200ft, short standing break (10 seconds at approximately 150ft) ? Deviation: Needed to be advised to slow down. ? Vitals monitored by respiratory therapist. Began with O2 supplement at 2L with resting O2 reading of 90%, decreased to 84% with ambulation, with supplement increased to 4L. Able to increase back to 90% once seated within 1 minute. ASSESSMENT:? Tolerated fair, but does not like to be told to slow down, breath or stop to rest. PLAN: Continue to work on ADL tolerance until medically cleared for discharge. TREATMENT CODE/TIME: 73692y6, 10:50 to 11:10 (20') DISCHARGE RECOMMENDATION: Home with PT
[2024-09-23] MEDS: cefTRIAXone 2 GM/50 ML BAG IVPB (13:37)
--- NOTE | 2024-09-23 14:52 | W.PM.PROGNOT ---
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 Principle cause is pneumonia with COPD/asthma exacerbation. 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 Stable on 3 liters NC at rest, around her home baseline, but still poor exercise tolerance. Continue to monitor. 09.21.24 Vital signs this am O2 at 96% 4LNC. 09.22.24 Pt continues to have a higher than normal oxygen requirement. Will c/w doxy/duoneb/budesonide/corticosteroids/prednisone/rocephin/spiriva. 09.23.24 currently SaO2 at 90% 2LNC. C/W current rx (2) Community acquired pneumonia: Status: Acute Assessment and plan: Started on ceftriaxone and azithromycin, transitioned to doxycycline. No known MRSA or pseudomonas history or risk factors, improving with this treatment. 09.21.24 Pt states that she has had pneumonia 3 times this year. Will place speech evaluation as she could be aspirating. 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 No overt s/s aspiration were appreciated. Education was provided to patient re: heightened risk for developing adverse pulmonary event from microaspiration events, either from prandial or reflux-related aspiration. Standard swallowing precautions and reflux precautions were discussed at length. Jone is already utilizing these strategies, including small/slow bites and sips, upright 90 degree positioning with meals, staying upright after eating, and ceasing PO by 6PM (goes to bed at 10PM). 09/23/24 C/w Rocephin and doxy. WBC is stable at appx 15 and has to viewed in light of steroid use (3) COPD with exacerbation: Status: Acute Assessment and plan: Started on solumedrol along with nebs, antibiotics. continue home inhalers and budesonide nebs. Transition to oral prednisone. (4) Hyponatremia: Status: Acute Assessment and plan: Mild, a/w pneumonia, improving. 09.21.24 will recheck cmp in am 09.22.24 Sodium is 134 today. No symptoms (5) Hypomagnesemia: Status: Acute Assessment and plan: normalized after IV supplement (6) DVT prophylaxis: Status: Acute Assessment and plan: enoxaparin (7) Hypokalemia: Status: Acute Assessment and plan: will give oral replacement 1.1.25 resolved (8) Cough: Status: Acute Assessment and plan: still has a nonproductive cough. On tessalon/robitussin/mucinex. Will add fluticasone although PE doesn't indicate much PND, drainage can cause cough. Not on vanessa. No real s/s PUD Subjective Subjective Interval history since last seen: Pt seen and examined in her room this am and states that she is still coughing and feeling weak. POC d/w pt as well as bedside nurse during MDR. Exam Narrative Exam Narrative: GEN: Alert and oriented x 4, sitting up in bed. No acute distress at rest. LUNGS: Improved air movement diffusely. slight rales on right side. Mild diffuse wheeze on inspiration. Pt also with mild prolonged expiration CV: RRR with no murmurs, gallops, or rubs. No elevation JVP ABD: active bowel sounds, soft,nondistended. Not tender. EXT: no cyanosis, clubbing, or edema no cobblestoning in pharynx Objective Last Vital Signs Temp 36.4 C L 09/23/24 11:55 Pulse 66 09/23/24 11:55 Resp 18 09/23/24 11:55 BP 119/89 09/23/24 11:55 Pulse Ox 90 L 09/23/24 11:55 Laboratory Results - last 24 hr 09/23/24 05:47 WBC 15.98 H RBC 4.08 Hgb 11.8 Hct 36.4 MCV 89 MCH 28.9 MCHC 32.4 RDW 14.2 Plt Count 298 MPV 9.2 Immature Gran % 2.0 Neutrophils % 73.3 Lymphocytes % 15.8 Monocytes % 8.5 Eosinophils % 0.1 Basophils % 0.3 Nucleated RBC % 0.0 Absolute Neutrophils 11.71 H Absolute Lymphocytes 2.52 Absolute Monocytes 1.36 H Absolute Eosinophils 0.02 Absolute Basophils 0.05 Sodium 136 Potassium 3.5 Chloride 98 Carbon Dioxide 34.9 H Anion Gap 3.1 BUN 11 Creatinine 0.8 Est GFR (CKD-EPI 2020) 74.44 Glucose 68 L Calcium 8.6 Total Bilirubin 0.37 AST 17 ALT 17 Alkaline Phosphatase 65 Total Protein 6.7 Albumin 2.6 L PAWSS Have you Been Recently Intoxicated or Drunk Within the Last 30 days?: No Have you Ever Experienced Previous Episodes of Alcohol Withdrawal?: No Have you ever Experienced Withdrawal Seizures?: No Have you ever Experienced Delirium Tremens(DT)s?: No Have you ever undergone Alcohol Rehabilitation Treatment (i.e, inpt ot outpatient treatment programs)?: No Have you ever Experienced Blackouts?: No Have you ever Combined Alcohol with other Downers within the last 90 days?: No Have you ever Combined Alcohol with any other Substance of Abuse during the last 90 days?: No Positive Blood Alcohol level on Presentation? [PCS.BAL]: Unable to Obtain Evidence of Increased Autonomic Activity (i.e. HR>120, tremor, sweating, agitation, nausea)?: No Result: 0 Time Spent with Patient Time Spent with Patient: 25-34 minutes Time was spent: preparing to see the patient(eg.review tests), obtaining and/or reviewing separately otained hiistory, ordering medications,tests, procedures, referring, communicating with other health customer care voice consultant, indepentently interpreting results, counseling the patient and care coordination
[2024-09-23] MEDS: Fluticasone NASAL SPRAY 16 GM BTL NS (21:06)
[2024-09-23] MEDS: Enoxaparin 40 MG/0.4 ML SYR SC (21:07)
[2024-09-23] MEDS: Gabapentin 300 MG CAP PO (21:08)
[2024-09-23] MEDS: Montelukast 10 MG TAB PO (21:08)
[2024-09-23] MEDS: Nystatin 500000 UNITS/5 ML SUSP 5ML CUP PO (22:49)
[2024-09-24] VITALS (9 sets, daily range): BP systolic 131–139; BP diastolic 55–66; PULSE 61–71; RESP 9–20; TEMP 36.3–36.7; O2SAT 90–99
[2024-09-24] MEDS: Levothyroxine 50 MCG TAB 150 MCG PO (06:41)
[2024-09-24 06:42] LABS: Absolute Monocyte Count 1.39 10^3/uL (0.1-0.8); Basophils % 0.3 %; Eosinophils % 0.4 %; HCT 38.6 % (36.0-46.0); HGB 12.6 g/dL (11.2-15.7); Lymphocytes % 15.6 %; MCH 29.2 pg (27.0-33.0); MCHC 32.6 % (32.0-36.0); MCV 90 fL (80-95); MPV 8.8 fL (8.0-11.0); Monocytes % 6.9 %; Neutrophils % 74.8 %; Platelet Count 323 10^3/uL (130-400); RBC 4.31 10^6/uL (3.93-5.22); RDW 14.3 % (11.7-14.6); RDW-SD 47.2 fL; WBC 20.21 10^3/uL (4.4-10.8)
[2024-09-24] MEDS: Benzocaine/Menthol LOZG 15/BOX 1 EACH SUC (06:43)
[2024-09-24 06:48] LABS: Absolute Basophil Count 0.06 10^3/uL (0.0-0.2); Absolute Eosinophil Count 0.08 10^3/uL (0.0-0.7); Absolute Lymphocyte Count 3.15 10^3/uL (1.2-3.4); Absolute Neutrophil Count 15.12 10^3/uL (1.2-6.7)
[2024-09-24 06:56] LABS: ALT 20 U/L (14-59); AST 17 U/L (15-37); Albumin 2.8 g/dL (3.4-5.0); Alkaline Phosphatase 67 U/L (46-116); Anion Gap 2.5 mmol/L (3-11); BUN 9 mg/dL (7-18); Bilirubin, Total 0.39 mg/dL (0.2-1.0); CO2 34.5 mmol/L (21.0-32.0); CREATININE 0.8 mg/dL (0.55-1.02); Calcium 8.9 mg/dL (8.5-10.1); Chloride 99 mmol/L (98-107); Estimated GFR 74.44 (mL/min/1.73m2); Glucose 75 mg/dL (74-106); Potassium 4.2 mmol/L (3.5-5.1); Sodium 136 mmol/L (136-145)
[2024-09-24] MEDS: Budesonide/Formoterol 160/4.5 6 GM 60 PUFF INH IH (07:57)
[2024-09-24] MEDS: Tiotropium Bromide-Respimat 10 PUFF INH 2 PUFF IH (07:58)
[2024-09-24] MEDS: Albuterol/Ipratropium 3 ML UPD VIAL UPD ×2 (07:58→13:42)
[2024-09-24] MEDS: buPROPion-XL 150 MG TABCR 300 MG PO (08:23)
[2024-09-24] MEDS: Fluticasone NASAL SPRAY 16 GM BTL NS (08:23)
[2024-09-24] MEDS: Potassium Chloride 20 MEQ TABCR PO (08:23)
[2024-09-24] MEDS: Nystatin 500000 UNITS/5 ML SUSP 5ML CUP PO ×2 (08:23→13:54)
[2024-09-24] MEDS: predniSONE 20 MG TAB 40 MG PO (08:23)
[2024-09-24] MEDS: Normal Saline Flush 10 ML SYR IVP (08:24)
[2024-09-24] MEDS: Benzonatate 200 MG CAP PO ×2 (08:24→13:54)
[2024-09-24] MEDS: Furosemide 20 MG TAB PO (08:24)
[2024-09-24] MEDS: guaiFENesin 600 MG TABCR PO (08:24)
[2024-09-24] MEDS: Oxybutynin 5 MG TAB PO (08:24)
[2024-09-24] MEDS: Escitalopram 20 MG TAB PO (08:24)
--- NOTE | 2024-09-24 09:45 | PDOC.CMPRO ---
Date of service: 09/24/24 Time of Service: 09:45 Care Management Progress Note Discharge Potential Discharge Needs: PCP F/U Appt Anticipated Barriers to Discharge: Medical Status Patient/Family Education Needs: Review discharge instructions, discuss Ask Me Three Transportation: Private vehicle Plan: Anticipate Genna will be discharged home to her daughter's home in [place] when medically ready. She will have HH PT- [facility], provided that her PCP is willing to be responsible for these orders. She will return to her own home in [place] once she returns to [facility]. She will follow up with her community providers and plan of care and transport with family. CM will follow and continue to support discharge needs. Social Determinants of Health Screening Social Determinants of Health last assessed: 09/24/24 Will the Patient Participate in the Screening?: Yes Do you worry about having a steady place to live?: no Problems where you live: smoke detectors missing or not working and Carbon monoxide detectors missing or not working In the past 12 months, have you had to go without electric, gas, oil or water in your home?: no Have you or anyone in your house had to go without enough food to eat?: no Has lack of transportation kept you from medical appointments or from doing things needed for daily living?: no Has anyone in your life made you feel unsafe or unsupported?: no How hard is it for you to pay for the very basics like food, housing, medical care, and heating? Would you say it is:: Not hard at all Do you want help finding or keeping work or a job?: I do not need or want help If for any reason you need help with day-to-day activities such as bathing, preparing meals, shopping, managing finances, etc., do you get the help you need?: I get all the help I need How often do you feel lonely or isolated from those around you?: Rarely Do you speak a language other than [place] at home?: No Does the patient want assistance with any of the above?: Yes Health Related Social Needs Health related social needs: inadequate housing (Z59.1) and feeling lonely/isolated (Z60.8)
[2024-09-24] MEDS: Doxycycline Hyclate 100 MG CAP PO (09:55)
--- NOTE | 2024-09-24 12:04 | PDOC.CMDIS ---
Date of service: 09/24/24 Time of Service: 12:04 LACE Index Scoring Tool Questions: Length of Stay (in days): 4 - 6 Was the patient admitted via the E.D.?: Yes Comorbidities: Congestive Heart Failure and Chronic Pulmonary Disease E.D. Visits: 1 Answers: Total Score: 13 Risk of Readmission: High Risk Care Management Discharge Plan Reason for Hospitalization: pneumonia Discharge Plan: Genna will be discharged to her daughter's home in [place] with new home health PT and [facility]. She will follow up with her T-doc appointment locally and with her PCP in [place] when she returns home. CM contacted her PCP to request she follow the local home health orders, which she agreed to. Genna will transport via private vehicle with her daughter. Patient/Family Education Needs: Review of discharge instructions, limitations, follow up plan and discuss Ask Me Three. Services Needed at Discharge: Home Health Care Services SDOH Health Related Social Needs: Health related social needs inadequate housing (Z59.1), feeling lonely/isolated (Z60.8) Health related social needs: inadequate housing(Z59.1)
--- NOTE | 2024-09-24 12:42 | PTTR_ITS ---
PT Notes Visit Reasons: pneumonia, COPD exacerbation Inpatient Physical Therapy Treatment Note [facility] Date: 09/24/2024 PRECAUTIONS: Continuous Oxygen, fall, standard SUBJECTIVE: Pt reports she may be going home today. She has arranged for assistance with yard management at her apt. and will only be temporarily be at her daughters home. Pt reports she does have access to a FWW however she does not think she will need it. OBJECTIVE: Alert female seated in chair with BLE elevated. Oxygen at 2L/min via NC sats 91%? PAIN: No complaints of pain offered. Vitals: 2L at rest 91% reduced to 84% with mobility increased to 4L/min 88% then to 6L 91% pt returned to 2L/min at end of session able to sustain at 91% at rest Therapeutic Activities (71737): Direct one-on-one instruction in dynamic activities to improve functional performance. ? BED MOBILITY/TRANSFERS? Sit-stand: SBA ? Stand-sit: SBA? surface to surface: supervision x 6 trials ambulation? Assistive Device: no AD? Weight bearing: Full Assist: Supervision ? Distance:?30 feet x 6 within room with sit rest between to simulate daily functional movement within home. ? Deviation: Needed to be advised to slow down. ? Therapeutic exercise 79993 instructed in and issued HEP as follows Pt currently able to perform 5 reps x 2 sets to maintain sats. Access Code: [email or web address] URL: [email or web address] Date: 09/24/2024 Prepared by: Zeina Sol Exercises - Seated Long Arc Quad - 2 x daily - 5-7 x weekly - 1 sets - 10 reps - 3sec hold - Seated March - 2 x daily - 5-7 x weekly - 1 sets - 10 reps - 3sec hold - Standing Heel Raise with Support - 2 x daily - 5-7 x weekly - 2 sets - 5-10 reps - Mini Squat with Counter Support - 2 x daily - 5-7 x weekly - 2 sets - 5-10 r eps - Sit to Stand Without Arm Support - 2 x daily - 5-7 x weekly - 2 sets - 5 reps ASSESSMENT:? Pt tolerated session well. Pt able to demonstrate ambulation without AD with supervision cues for Oxygen tubing management. Pt benefited from cues for PLB of smell the roses and cool the soup to increase inhalation and exhalation in a slower mananer. PLAN: Continue to work on functional activity tolerance until medically cleared for discharge. TREATMENT CODE/TIME: first session [id number], [id number] x 1 [id number] 39 mins DISCHARGE RECOMMENDATION: Home with PT
--- NOTE | 2024-09-24 12:56 | DSE_ITS ---
Date of service: 09/24/24 Time of Service: 12:56 DS: Diagnosis Discharge Diagnosis (1) Acute on chronic hypoxic respiratory failure: Status: Acute (2) Community acquired pneumonia: Status: Acute (3) COPD with exacerbation: Status: Acute (4) Hyponatremia: Status: Acute (5) Hypomagnesemia: Status: Acute (6) DVT prophylaxis: Status: Acute (7) Hypokalemia: Status: Acute (8) Cough: Status: Acute Discharge Plan Disposition Patient Disposition: Home Condition: Stable Discharge Details Reason For Visit: pneumonia, COPD exacerbation Admit Date/Time: 09/19/24 15:34 Admit Provider: Mick Henson Attending Provider: Mick Henson [facility] Course: This is an 78-year-old female who was seen in the ED on 19 September for hypoxia. Workup in the ED was indicative of pneumonia and COPD exacerbation patient was subsequently mated to the hospital service for further evaluation and treatment. The patient does use home oxygen. The plan on admission was to treat pneumonia with Rocephin and Zithromax but she was actually started on doxycycline for concerns about cardiac issue. During the ensuing 5 days she improved in regards to her symptomology and appeared stable for discharge on the second and the patient will be discharged home and her daughter will help her in the home setting. It is notable that the patient does have an elevated white count but this is most likely due to steroid use. Sputum and blood cultures are negative. An echocardiogram was also performed and did mention severe tricuspid regurgitation but with an ejection fraction of 56%. Chest x-ray was also performed and this is available for review. Home Meds and New Rx's Prescriptions: New furosemide [Lasix] 20 mg tablet 20 mg PO DAILY Qty: 30 0RF prednisone 10 mg tablet 10 mg PO DAILY Qty: 10 0RF Continued levothyroxine 150 mcg tablet 150 mcg PO DAILY Patient Comments: TAKE ONE TABLET BY MOUTH ONCE DAILY. gabapentin 300 mg capsule 300 mg PO QHS Patient Comments: TAKE 1 CAPSULE BY MOUTH EVERY DAY AT HOUR OF SLEEP budesonide 0.5 mg/2 mL suspension for nebulization 0.5 mg inhalation BID Patient Comments: Inhale 1 ampule 2 TIMES A DAY via nebulizer montelukast 10 mg tablet 10 mg PO DAILY Patient Comments: TAKE ONE TABLET BY MOUTH ONCE DAILY. oxybutynin chloride 5 mg tablet 5 mg PO DAILY Patient Comments: TAKE 1 TABLET BY MOUTH DAILY NEEDED FOR URINE CONTROL escitalopram oxalate 20 mg tablet 20 mg PO DAILY Patient Comments: TAKE 1 TABLET BY MOUTH EVERY DAY Fasenra 30 mg/mL syringe 30 mg SUBCUT ONCE Patient Comments: 1 injection every 56 days per pt Eric Durant 200-62.5-25 mcg blister with device 1 inh INHALATION DAILY Patient Comments: INHALE 1 PUFF BY MOUTH EVERY DAY bupropion HCl [Wellbutrin XL] 300 mg tablet extended release 24 hr 300 mg PO DAILY Discontinued furosemide 20 mg tablet 20 mg PO DAILY Patient Comments: TAKE 1 TABLET BY MOUTH EVERY DAY Discharge Instructions Instructions: Chronic Obstructive Pulmonary Disease (COPD) (DC), Pneumonia, Adult (DC) Stand Alone Forms: Nursing Discharge Form Referrals: Samina Hurtado [Other] (I called your PCP to set up appointment, had to leave voicemail, they will call you to set up an appointment for within 1 to 2 weeks.) Activity:: Activity as Tolerated Equipment/Supplies:: No Equipment Needed Diet:: As Tolerated Discharge Orders Discharge Orders: Discharge Order (Routine); Ordered 09/24/24 Ordered By: Esdras Rodriguez DS: Summary Summary Time spent discussing smoking cessation with patient: more than 10 minutes Time Spent with Patient providing and/or coordinating discharge services: Greater than 30 minutes Status at Discharge Functional status at discharge: independent ambulation Overall status at discharge: patient is back to baseline Mental Status: mental status grossly normal Speech and Movement: speech and movement normal Mood: congruent mood Affect: normal affect Quality:SDOH Health Related Social Needs: Health related social needs inadequate housing (Z59.1) , feeling lonely/isolated (Z60.8) Exam Narrative Exam Narrative: GEN: Alert and oriented x 4, sitting up in bed. No acute distress at rest. LUNGS: Improved air movement diffusely. slight rales on right side. Mild diffuse wheeze on inspiration. Pt also with mild prolonged expiration CV: RRR with no murmurs, gallops, or rubs. No elevation JVP ABD: active bowel sounds, soft,nondistended. Not tender. EXT: no cyanosis, clubbing, or edema no cobblestoning in pharynx Psych Mental Status: mental status grossly normal Speech and Movement: speech and movement normal Mood: congruent mood Affect: normal affect DS: Data Vitals/I&O Vitals and I&O: Vital Signs Temperature 36.7 C 09/24/24 11:09 Temperature Source Tympanic 09/24/24 11:09 Pulse 67 09/24/24 11:09 Pulse Rhythm Regular 09/19/24 16:30 Pulse 75 09/19/24 16:01 Respiratory Rate 20 09/24/24 11:09 Respiratory Effort Short of Breath 09/19/24 16:30 Respiratory Depth Shallow 09/19/24 16:30 Respiratory Pattern Tachypnea 09/19/24 16:30 Blood Pressure 135/55 L 09/24/24 11:09 Blood Pressure Mean 76 09/19/24 16:01 Blood Pressure Position Sitting 09/19/24 13:58 Pulse Oximetry 92 09/24/24 11:09 Oxygen Delivery Method Nasal Cannula 09/24/24 11:09 Oxygen Flow Rate 2 09/24/24 11:09 Pain Level 0 09/24/24 04:21 Comment RN notified 09/20/24 15:36 Comment 5L 09/19/24 15:20 Intake & Output 09/23/24 09/24/24 09/24/24 23:59 11:59 23:59 Intake Total 750 / 1350 280 / 280 Output Total 300 / 1125 1345 / 1345 Balance 450 / 225 -1065 / -1065 Weight 57.7 kg Intake: IV 250 / 350 100 / 100 Oral 500 / 1000 180 / 180 Output: Urine 300 / 1125 1345 / 1345 Other: Urine Color Yellow Yellow Urine Appearance Clear Clear Urine Odor None None Comment Large incontinence in brief Stool Size Moderate Stool Characteristics Formed Formed Hard Brown Data Completed and Pending Labs on day of discharge: Labs from last 24 hours 09/24/24 06:15 WBC 20.21 H RBC 4.31 Hgb 12.6 Hct 38.6 MCV 90 MCH 29.2 MCHC 32.6 RDW 14.3 Plt Count 323 MPV 8.8 Immature Gran % 2.0 Neutrophils % 74.8 Lymphocytes % 15.6 Monocytes % 6.9 Eosinophils % 0.4 Basophils % 0.3 Nucleated RBC % 0.0 Absolute Neutrophils 15.12 H Absolute Lymphocytes 3.15 Absolute Monocytes 1.39 H Absolute Eosinophils 0.08 Absolute Basophils 0.06 Sodium 136 Potassium 4.2 Chloride 99 Carbon Dioxide 34.5 H Anion Gap 2.5 L BUN 9 Creatinine 0.8 Est GFR (CKD-EPI 2020) 74.44 Glucose 75 Calcium 8.9 Total Bilirubin 0.39 AST 17 ALT 20 Alkaline Phosphatase 67 Total Protein 7.0 Albumin 2.8 L Preliminary micro results at discharge 09/19/24 16:13 Blood Culture - Preliminary Blood NO GROWTH 96 HOURS 09/19/24 15:50 Blood Culture - Preliminary Blood NO GROWTH 96 HOURS PFSH All Active Problems (Updated 09/24/24 @ 12:53 by Esdras Rodriguez MD) Cough (Acute) Hypokalemia (Acute) Hypomagnesemia (Acute) Hyponatremia (Acute) Acute on chronic hypoxic respiratory failure (Acute) DVT prophylaxis (Acute) COPD with exacerbation (Acute) Community acquired pneumonia (Acute) Medical History (Updated 09/24/24 @ 12:53 by Esdras Rodriguez MD) Congestive heart failure 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 Hypothyroid Depression Surgical History (Updated 09/19/24 @ 16:32 by Mick Henson) 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) H/O section S/P thyroidectomy including substernal nodules Family History (Updated 09/19/24 @ 16:33 by Mick Henson) Father , age 60 Cancer pancreatic Social History (Updated 09/19/24 @ 16:44 by Mick Henson) Smoking/Tobacco Use Status: Former Tobacco Use tobacco type: cigarettes Quit Date: 09/23/07 Pack-years: 75 Smoking risk assessment performed?: Yes Alcohol Intake: current Alcohol Intake frequency: holidays/special occasions only Drug use: Never Substance use type: does not use Housing: house Do you feel safe at home: Yes Do you feel safe in your relationship?: Yes Additional Social history: Lives in [place], apartment alone. Moved up from [place] 2018, son in area Retired real estate loan processor grand daughter helps care for pt, arrived soon after, very concerned. Time Spent with Patient Time Spent with Patient: 45-69 minutes Time was spent: preparing to see the patient(eg.review tests), obtaining and/or reviewing separately otained hiistory, ordering medications,tests, procedures, referring, communicating with other health rn wound care, indepentently interpreting results, counseling the patient and care coordination
--- NOTE | 2024-09-24 14:57 | PTTR_ITS ---
PT Notes Visit Reasons: pneumonia, COPD exacerbation Inpatient Physical Therapy Treatment Note [facility] Date: 09/24/2024 PRECAUTIONS: Continuous Oxygen, fall, standard SUBJECTIVE: Pt stating she reviewed her HEP and was able to follow the program. OBJECTIVE: Alert female seated in chair with BLE elevated. Oxygen at 2L/min via NC sats 91%? PAIN: No complaints of pain offered. Vitals: 2L at rest 91% reduced to 84% with ADL tasks increased to 4L/min 91% pt returned to 2L/min at end of session able to sustain at 93% at rest Therapeutic Activities (99422): Direct one-on-one instruction in dynamic activit ies to improve functional performance. ?? Provided with cueing throughout for pacing and energy conservation during ADL /self care tasks including amulation with out device, toileting hygiene . pt req uired sit rest and visual cue for slow PLB then amb to sink to perform hair washing . Pt able to stand x 6 mins with BUE support while her hair was washed then pt sat to perform washing of upper body and hair combing. Pt maintain sats >88% on 4L/min throughout the task. With sit rest returned to 93% then oxygen reduced to 2L/Min sats 91-93% at rest ? ASSESSMENT:? Pt tolerated session well. Pt able to demonstrate ambulation without AD with supervision cues for Oxygen tubing management. Pt benefited from intermittent cues for PLB of smell the roses and cool the soup to increase inhalation and exhalation in a slower manner. Pt will be discharged to home with HHPT. PLAN: Continue to work on functional activity tolerance until medically cleared for discharge. TREATMENT CODE/TIME: first session [id number] 41 minutes DISCHARGE RECOMMENDATION: Home with PT
--- NOTE | 2024-09-25 16:32 | PDOC.HHF2F ---
Home Health Referral Home Health Orders Clinical synopsis of why skilled professionals are needed: acute on chronic respiratory failure COPD requiring oxygen Medical diagnosis necessitation home health referral: acute on chronic respiratory failure COPD requiring oxygen weakness Physical Therapist: Check all that apply Increase strength & endurance for safe mobility at home: Ordered To design/establish home maintenance program: Ordered Fall reduction therapy program for patient with history of frequent falls: Ordered Home safety evaluation and teaching/gait training including stair management (if applicable): Ordered [facility]: Ordered Encounter Date and Reason: I certify that a FTF encounter for this patient was performed on September 25, 2024 and that such encounter was related to the primary reason the patient requires home health services. The encounter was conducted in the following manner: By me as the certifying physician, INTERNATIONAL RELATIONS TEACHER, PA or By an inpatient physician, INTERNATIONAL RELATIONS TEACHER or PA during an inpatient stay who communicated findings to me, Certification And Authentication I certify that I composed the above information based on my clinical judgment relating to this patient's medical condition and, if applicable, clinical findings communicated to me by the NPP or inpatient physician who performed the FTF encounter. Name of Provider that will be monitoring home health services: Esdras Rodriguez
== END 2024-09-24 15:45 | disposition home or self-care (01) | DRG 193 ==
LOC: ER 16:16 → MS 16:18
PROVIDERS: Hospitalist; Admitting Provider Family Medicine; Emergency Provider Emergency Medicine; Visit Provider Family Medicine
DX: J18.9 Pneumonia, unspecified organism (principal); J96.21 Acute and chronic respiratory failure with hypoxia; J44.0 Chronic obstructive pulmonary disease with (acute) lower respiratory infection; J44.1 Chronic obstructive pulmonary disease with (acute) exacerbation; E87.1 Hypo-osmolality and hyponatremia; E03.9 Hypothyroidism, unspecified; F32.A Depression, unspecified; E83.42 Hypomagnesemia; E87.6 Hypokalemia; Z99.81 Dependence on supplemental oxygen; E87.8 Other disorders of electrolyte and fluid balance, not elsewhere classified; Z86.718 Personal history of other venous thrombosis and embolism; I25.10 Atherosclerotic heart disease of native coronary artery without angina pectoris; I50.9 Heart failure, unspecified; Z86.018 Personal history of other benign neoplasm; Z87.891 Personal history of nicotine dependence; R05.9 Cough, unspecified
CPT/HCPCS: 00123; 36415; 80048; 80053; 82805; 87040; 87637; 92610; 93005; 94640; 96365; 96368; 96375; 97110; 97162; 97530; 99285; J1650; 71045; 83735; 83880; 84439; 84443; 84484; 85025; 87070; 87205; 93010; 93306; 94664; 94667; 94668; 94760; 99223; 99232; 99233; 99239; J0456; J0696; J1941; J2919; J3475; J7512; J7620; J7626